=== PATIENT | female | born 1940 | race Caucasian/White ===

== ENCOUNTER → 2018-03-07 13:04 | Outpatient (CLI) | payer OTHER, SELFPAY ==
--- NOTE | 2018-03-07 | DI.MG.S_ITS ---
BILATERAL DIGITAL SCREENING MAMMOGRAM 3D/2D WITH CAD: 03/07/2018 CLINICAL: Routine screening. Comparison is made to exams dated: 07/19/2016 mammogram, 07/06/2014 mammogram - [facility], and 10/26/2010 mammogram - [facility]. The tissue of both breasts is heterogeneously dense. This may lower the sensitivity of mammography. Current study was also evaluated with a Computer Aided Detection (CAD) system. There are benign calcifications in both breasts. No significant masses, calcifications, or other findings are seen in either breast. IMPRESSION: BENIGN There is no mammographic evidence of malignancy. A 1 year screening mammogram is recommended. NOTE: For mammograms, a report in lay terms will be sent to the patient. Approximately 15% of breast malignancies will not be visualized mammographically. In the management of a palpable breast mass, a negative mammogram must not discourage biopsy of a clinically suspicious lesion. Electronically Signed By: Carlos de los santos/magdalena:03/09/2018 22:51:00 letter sent: Normal Exam ACR BI-RADS Category 2: Benign Finding(s) [id number]
== END ==
PROVIDERS: Family Provider Internal Medicine; PCP Internal Medicine; Visit Provider Internal Medicine
DX: Z12.31 Encounter for screening mammogram for malignant neoplasm of breast (principal)
CPT/HCPCS: 77063; 77067

== ENCOUNTER 2018-05-09 10:15 | Outpatient (RCR) | payer OTHER, SELFPAY ==
--- NOTE | 2018-02-23 16:06 | PT.OIE ---
Current Diagnoses Low back pain (02/19/18) Difficulty in walking, not elsewhere classified (02/19/18) Abnormal posture (02/19/18) Weakness (02/19/18) Provider Visit Care Team Role Provider Type Mehul Pérez MD Attending Provider Physician Family Provider Primary Care Provider Specialty: Internal Medicine Address: [address] [place] [address], [id number] Email: Physical Therapy Initial Evaluation PT-OP-B Current Condition Start: 02/19/18 09:50 Freq: Status: Active Protocol: Document 02/19/18 09:51 [facility] (Rec: 02/19/18 10:33 [facility] [id number]) Current Condition History of Current Condition Onset Date 2 years Current Complaints LBP, muscle spasms, right hip pain, bilateral knee pain right > left, weakn History of Current Condition diagnosed of a-fib 2 years ago , then edema and cellulitis and increase in neuropathy right foot. At this time c/o back spasms, constant sciatic nerve pain, right hip pain ( injection 2-4 months ago). Increasingly stooped over due to muscle spasms in back. Uses 4WW at home, trekking poles in the community. Pain increases with sitting ( especially in car), standing, walking. Reports 20# weight gain since being put on Prednisone. States she knows losing weight would be helpful for her pain. Prior Treatments and Tests Prior laminectomy 2011, not successful. Has had injections, not successful. MRI 18 months ago; further deterioration of lumbar spine Treatment Goals Patient/Caregiver Goals Learn land-based exercises, do aquatic therapy both to decrease pain, improve strength and mobility, activity tolerance. 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 Functional Limitations- Recreation/ limited to sitting Hobbies Personal Factors Other Personal Factors That May Effect chronicity of condition Therapy/Recovery PT-OP-C Subjective Start: 02/19/18 09:50 Freq: Status: Active Protocol: Document 02/23/18 15:35 [facility]AK (Rec: 02/23/18 16:04 [facility] [id number]) Patient Questionnaires Lower Extremity Functional Scale LEFS Score 41 LEFS Impairment 40 to 59% Impaired (Score 32- 47) Oswestry Low Back Index Oswestry Score 42 Oswestry Impairment 40 to 59% Impaired (Score 40- 59) OP-PT Pain Assessment Pain Assessment Grid Paper Pain Assessment Grid Completed Yes Location Bilateral Back Pain Location Details stas thoracic and lumbar spines 6/10, right hip, knee, and ankle 4/10, Pain Aggravating Factors Standing Walking Home Pain Medication Use Pain Medications Used Yes: Gabapentin, Acetaminophen /codeine PT-OP-G Mobility & Gait Start: 02/19/18 09:50 Freq: Status: Active Protocol: Document 02/23/18 15:35 [facility] (Rec: 02/23/18 16:04 [facility] [id number]) OP Mobility Evaluation Transfers Sit to Stand requires use of UE's, painful Bed to Chair Transfers painful Car Transfers difficult and painful Floor Transfers unable Functional Movements Lifting and Carrying painful Squats unable, painful Running Assessment painful OP Gait Assessment Gait Gait Assistance Required: Independent Gait Deviations General Gait Pattern Antalgic Decreased Stride Length Decreased Feet Clearance Flexed Trunk Comments Gait Comments using Data Maiding pole today, uses 4WW at home Stair Climbing Evaluation Technique/Endurance Stair Climbing Technique Step to Step Comments Stair Climbing Comments requires stas UE use PT-OP-K Range of Motion Start: 02/19/18 09:50 Freq: Status: Active Protocol: Document 02/23/18 15:35 [facility] (Rec: 02/23/18 16:04 [facility] [id number]) Lumbar Spine Range of Motion Lumbar Spine Active Comments forward flexion WNL otherwise moderately decreased with less than neutral extension Hip Goniometric Range of Motion Hip ROM Limitations Comments Sats hips moderately decreased with less than neutral hip extension, grossly -10. IR limited to 10 right, 20 left. Knee Goniometric Range of Motion Knee ROM Limitations Comments Lacking full extension stas knees right greater than left PT-OP-M Strength Start: 02/19/18 09:50 Freq: Status: Active Protocol: Document 02/23/18 15:35 [facility] (Rec: 02/23/18 16:04 [facility] [id number]) Trunk Strength Trunk Manual Muscle Testing Flexion 3- Fair- Extension 2 Poor Hip Strength Hip Manual Muscle Testing Left Flexion (L2) 4 Good Extension (S1) 3- Fair- Abduction 3+ Fair+ External Rotation 4- Good- Internal Rotation 4- Good- Right Flexion (L2) 4- Good- Extension (S1) 2+ Poor+ Abduction 3- Fair- External Rotation 3+ Fair+ Internal Rotation 4 Good Knee Strength Knee Manual Muscle Testing Left Flexion (S2) 4 Good Extension (L3) 4 Good Right Flexion (S2) 4- Good- Extension (L3) 4- Good- Comments painful Ankle/Foot Strength Ankle and Foot Manual Muscle Testing Left Dorsiflexion (L4) 4+ Good+ Plantarflexion (S1) 4+ Good+ Right Dorsiflexion (L4) 4+ Good+ Plantarflexion (S1) 4+ Good+ PT-OP-Q Treatments Start: 02/19/18 09:50 Freq: Status: Active Protocol: Document 02/23/18 15:35 [facility] (Rec: 02/23/18 16:04 [facility] [id number]) Self-Care/Home Management Treatment Education Patient Education Home Exercise Program Posture Other Education issued written program PT-OP-R Modalities Start: 02/19/18 09:50 Freq: Status: Active Protocol: Document 02/23/18 15:35 [facility] (Rec: 02/23/18 16:04 [facility] [id number]) Hot Pack/Cold Pack Treatment Hot Pack Location thoracolumbar spines Patient Position Hooklying Treatment Duration (minutes) 15 Patient Tolerance Good PT-OP-T Assessment and Plan Start: 02/19/18 09:50 Freq: Status: Active Protocol: Document 02/23/18 15:35 [facility] (Rec: 02/23/18 16:04 [facility] [id number]) Physical Therapy Assessment Rehab Potential Rehabilitation Potential Fair Evaluation Complexity Number of Personal Factors/Comorbidities 3 or More Number of Body Systems Impaired 4 or More Clinical Presentation at Evaluation Evolving Impairments Impairments Activity Tolerance Functional Mobility Gait Pain Posture ROM Strength Goals Three Impairment Strength Short Term Goal (STG) Patient will be instructed in a HEP and aquatic exercise program for strengthening, ROM , and postural correction STG Duration 6 wks Bleach Liquor Maker Goal (LTG) Patient will be independent with HEP and aquatic exercise program and demonstrate an improvement in strength of trunk and LE's to at least 4/5 LTG Duration 12 wks Two Impairment Functional mobility Short Term Goal (STG) Patient will be able to perform household ambulation with min to no increase in pain STG Duration 6 wks Prison Goal (LTG) Patient will be able to ambulate for short community distances with minimal to no increase in pain using least- restrictive assistive device LTG Duration 12 wks One Impairment Activity tolerance Short Term Goal (STG) Improve Oswestry disability score by 10 points STG Duration 6 wks Bleach Liquor Maker Goal (LTG) Improve Oswestry disability score to no greater than 25% LTG Duration 12 wks Assessment Summary Assessment Patient presents with function -limiting pain stas thoracic and lumbar spines with radicular symptoms into right LE, and 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 Comorbidities include obesity, peripheral neuropathy , a-fib, HTN, OA, prior lumbar surgery. Her forward flexed standing and walking posture and poor standing tolerance is typical of stenosis in spine. She would benefit from physical therapy in both land and aquatic environment for pain management, strengthening , ROM, posture and to educate her in HEP and aquatic exercise program for long-term fitness and pain management. Physical Therapy Plan Frequency and Duration Frequency of Treatment 2x/Week Duration of Treatment 12 wks Plan of Care Start Date 02/19/18 Plan of Care End Date 05/22/18 Therapeutic Interventions Therapeutic Interventions Aquatic Therapy Gait Training Home Exercise Program Manual Therapy Patient/Caregiver Education Self-Care/Home Management Therapeutic Activities Therapeutic Exercises Modalities Cold Pack/Ice Massage Electric Stimulation Hot Packs Ultrasound Next Visit Focus/Plan Next Note Type Treatment Note Next Visit Plan Therapeutic exercise to address goal areas, manual therapy and modalities as indicated.
--- NOTE | 2018-03-06 11:14 | PT.OTN ---
Current Diagnoses Low back pain (03/05/18) Physical Therapy Treatment Note PT-OP-A Visit Information Start: 02/19/18 09:50 Freq: Status: Active Protocol: Document 03/05/18 12:30 [facility] (Rec: 03/06/18 11:14 [facility] [id number]) Out-Patient Physical Therapy Visit Information Visit Information Visit Type Treatment Note Visit Start Time 12:30 Visit Stop Time 13:15 Total Visit Minutes 45 Visit Number 2 Number of SEXUAL ASSAULT RESPONSE COORDINATOR Visits 0 PT-OP-B Current Condition Start: 02/19/18 09:50 Freq: Status: Active Protocol: Document 02/19/18 09:51 [facility]AK (Rec: 02/19/18 10:33 [facility] [id number]) Current Condition History of Current Condition Onset Date 2 years Current Complaints LBP, muscle spasms, right hip pain, bilateral knee pain right > left, weakn History of Current Condition diagnosed of a-fib 2 years ago , then edema and cellulitis and increase in neuropathy right foot. At this time c/o back spasms, constant sciatic nerve pain, right hip pain ( injection 2-4 months ago). Increasingly stooped over due to muscle spasms in back. Uses 4WW at home, trekking poles in the community. Pain increases with sitting ( especially in car), standing, walking. Reports 20# weight gain since being put on Prednisone. States she knows losing weight would be helpful for her pain. Prior Treatments and Tests Prior laminectomy 2011, not successful. Has had injections, not successful. MRI 18 months ago; further deterioration of lumbar spine Treatment Goals Patient/Caregiver Goals Learn land-based exercises, do aquatic therapy both to decrease pain, improve strength and mobility, activity tolerance. 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 PT-OP-G Mobility & Gait Start: 02/19/18 09:50 Freq: Status: Active Protocol: Document 02/19/18 09:51 [facility] (Rec: 02/23/18 16:04 [facility] [id number]) OP Mobility Evaluation Transfers Sit to Stand requires use of UE's, painful Bed to Chair Transfers painful Car Transfers difficult and painful Floor Transfers unable Functional Movements Lifting and Carrying painful Squats unable, painful Running Assessment painful OP Gait Assessment Gait Gait Assistance Required: Independent Gait Deviations General Gait Pattern Antalgic Decreased Stride Length Decreased Feet Clearance Flexed Trunk Comments Gait Comments using [employer] pole today, uses 4WW at home Stair Climbing Evaluation Technique/Endurance Stair Climbing Technique Step to Step Comments Stair Climbing Comments requires stas UE use PT-OP-K Range of Motion Start: 02/19/18 09:50 Freq: Status: Active Protocol: Document 02/19/18 09:51 [facility] (Rec: 02/23/18 16:04 [facility] [id number]) Lumbar Spine Range of Motion Lumbar Spine Active Comments forward flexion WNL otherwise moderately decreased with less than neutral extension Hip Goniometric Range of Motion Hip ROM Limitations Comments Stas hips moderately decreased with less than neutral hip extension, grossly -10. IR limited to 10 right, 20 left. Knee Goniometric Range of Motion Knee ROM Limitations Comments Lacking full extension stas knees right greater than left PT-OP-M Strength Start: 02/19/18 09:50 Freq: Status: Active Protocol: Document 02/19/18 09:51 [facility] (Rec: 02/23/18 16:04 [facility] [id number]) Trunk Strength Trunk Manual Muscle Testing Flexion 3- Fair- Extension 2 Poor Hip Strength Hip Manual Muscle Testing Left Flexion (L2) 4 Good Extension (S1) 3- Fair- Abduction 3+ Fair+ External Rotation 4- Good- Internal Rotation 4- Good- Right Flexion (L2) 4- Good- Extension (S1) 2+ Poor+ Abduction 3- Fair- External Rotation 3+ Fair+ Internal Rotation 4 Good Knee Strength Knee Manual Muscle Testing Left Flexion (S2) 4 Good Extension (L3) 4 Good Right Flexion (S2) 4- Good- Extension (L3) 4- Good- Comments painful Ankle/Foot Strength Ankle and Foot Manual Muscle Testing Left Dorsiflexion (L4) 4+ Good+ Plantarflexion (S1) 4+ Good+ Right Dorsiflexion (L4) 4+ Good+ Plantarflexion (S1) 4+ Good+ PT-OP-Q Treatments Start: 02/19/18 09:50 Freq: Status: Active Protocol: Document 02/19/18 09:51 [facility] (Rec: 02/23/18 16:04 [facility] [id number]) Self-Care/Home Management Treatment Education Patient Education Home Exercise Program Posture Other Education issued written program PT-OP-R Modalities Start: 02/19/18 09:50 Freq: Status: Active Protocol: Document 02/19/18 09:51 [facility] (Rec: 02/23/18 16:04 [facility] [id number]) Hot Pack/Cold Pack Treatment Hot Pack Location thoracolumbar spines Patient Position Hooklying Treatment Duration (minutes) 15 Patient Tolerance Good PT-OP-S Aquatic Treatment Start: 02/19/18 09:50 Freq: Status: Active Protocol: Document 03/05/18 12:30 [facility] (Rec: 03/06/18 11:14 [facility] [id number]) Aquatics Treatment Pool Entry/Exit Pool Entry/Exit Method Stairs Assistance Contact Guard Assistance Comments may use lift next session to exit Water Walking Other- 1 Water Level Chest Level Walking Equipment none Level of Assistance Standby Assistance Verbal Cues Comments forward, backward, side, march Lower Extremity Exercises 4 Details step-ups Body Position Standing Water Level Chest Level Equipment 6 box Reps/Duration 10x 3 Details hip flex/ext, ab/ad, circles Body Position Standing Water Level Chest Level Comments postural and core stabilization emphasis 2 Details hamstring stretch Body Position Standing Water Level Chest Level Equipment Small Noodle 1 Details SKTC, DKTC Body Position Standing Water Level [place] Comments wall [place] Activities [place] Activities Bicycle [place] Hip Abduction/Adduction Equipment flotation belt PT-OP-T Assessment and Plan Start: 02/19/18 09:50 Freq: Status: Active Protocol: Document 03/05/18 12:30 [facility] (Rec: 03/06/18 11:14 [facility] [id number]) Physical Therapy Assessment Goals Three Impairment Strength Short Term Goal (STG) Patient will be instructed in a HEP and aquatic exercise program for strengthening, ROM , and postural correction STG Duration 6 wks Usp Goal (LTG) Patient will be independent with HEP and aquatic exercise program and demonstrate an improvement in strength of trunk and LE's to at least 4/5 LTG Duration 12 wks Two Impairment Functional mobility Short Term Goal (STG) Patient will be able to perform household ambulation with min to no increase in pain STG Duration 6 wks Usp Goal (LTG) Patient will be able to ambulate for short community distances with minimal to no increase in pain using least- restrictive assistive device LTG Duration 12 wks One Impairment Activity tolerance Short Term Goal (STG) Improve Oswestry disability score by 10 points STG Duration 6 wks Usp Goal (LTG) Improve Oswestry disability score to no greater than 25% LTG Duration 12 wks Assessment Summary Assessment Good tolerance for aquatic exercise, patient has poor body awareness in terms of postural alignment due to time spent in flexed position. Difficulty ascending stairs after treatment; may benefit from use of lift until strength improves. Physical Therapy Plan Frequency and Duration Frequency of Treatment 2x/Week Duration of Treatment 12 wks Plan of Care Start Date 02/19/18 Plan of Care End Date 05/22/18 Therapeutic Interventions Therapeutic Interventions Aquatic Therapy Gait Training Home Exercise Program Manual Therapy Patient/Caregiver Education Self-Care/Home Management Therapeutic Activities Therapeutic Exercises Modalities Cold Pack/Ice Massage Electric Stimulation Hot Packs Ultrasound Next Visit Focus/Plan Next Note Type Treatment Note Next Visit Plan Progression of aquatic therapy for strengthening, gait, core stabilization, flexibility.
--- NOTE | 2018-03-10 14:42 | PT.OTN ---
Current Diagnoses Low back pain (03/10/18) Physical Therapy Treatment Note PT-OP-A Visit Information Start: 02/19/18 09:50 Freq: Status: Active Protocol: Document 03/10/18 14:34 CLB (Rec: 03/10/18 14:42 CLB [email or web address]) Out-Patient Physical Therapy Visit Information Visit Information Visit Start Time 10:15 Visit Stop Time 11:00 Total Visit Minutes 45 Visit Number 3 Number of HEALTHCARE TECHNICIAN Visits 1 PT-OP-B Current Condition Start: 02/19/18 09:50 Freq: Status: Active Protocol: Document 02/19/18 09:51 SAK (Rec: 02/19/18 10:33 SAK [id number]) Current Condition History of Current Condition Onset Date 2 years Current Complaints LBP, muscle spasms, right hip pain, bilateral knee pain right > left, weakn History of Current Condition diagnosed of a-fib 2 years ago , then edema and cellulitis and increase in neuropathy right foot. At this time c/o back spasms, constant sciatic nerve pain, right hip pain ( injection 2-4 months ago). Increasingly stooped over due to muscle spasms in back. Uses 4WW at home, trekking poles in the community. Pain increases with sitting ( especially in car), standing, walking. Reports 20# weight gain since being put on Prednisone. States she knows losing weight would be helpful for her pain. Prior Treatments and Tests Prior laminectomy 2011, not successful. Has had injections, not successful. MRI 18 months ago; further deterioration of lumbar spine Treatment Goals Patient/Caregiver Goals Learn land-based exercises, do aquatic therapy both to decrease pain, improve strength and mobility, activity tolerance. 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 Pt stated her doctor has diagnosed tendinitis of medial right knee. Pt stated she has pain in adductors of right LE after sitting in chair. PT-OP-G Mobility & Gait Start: 02/19/18 09:50 Freq: Status: Active Protocol: Document 02/19/18 09:51 SAK (Rec: 02/23/18 16:04 [facility] [id number]) OP Mobility Evaluation Transfers Sit to Stand requires use of UE's, painful Bed to Chair Transfers painful Car Transfers difficult and painful Floor Transfers unable Functional Movements Lifting and Carrying painful Squats unable, painful Running Assessment painful OP Gait Assessment Gait Gait Assistance Required: Independent Gait Deviations General Gait Pattern Antalgic Decreased Stride Length Decreased Feet Clearance Flexed Trunk Comments Gait Comments using MobGolding pole today, uses 4WW at home Stair Climbing Evaluation Technique/Endurance Stair Climbing Technique Step to Step Comments Stair Climbing Comments requires stas UE use PT-OP-K Range of Motion Start: 02/19/18 09:50 Freq: Status: Active Protocol: Document 02/19/18 09:51 SAK (Rec: 02/23/18 16:04 [facility] [id number]) Lumbar Spine Range of Motion Lumbar Spine Active Comments forward flexion WNL otherwise moderately decreased with less than neutral extension Hip Goniometric Range of Motion Hip ROM Limitations Comments Stas hips moderately decreased with less than neutral hip extension, grossly -10. IR limited to 10 right, 20 left. Knee Goniometric Range of Motion Knee ROM Limitations Comments Lacking full extension stas knees right greater than left PT-OP-M Strength Start: 02/19/18 09:50 Freq: Status: Active Protocol: Document 02/19/18 09:51 SAK (Rec: 02/23/18 16:04 SAK [id number]) Trunk Strength Trunk Manual Muscle Testing Flexion 3- Fair- Extension 2 Poor Hip Strength Hip Manual Muscle Testing Left Flexion (L2) 4 Good Extension (S1) 3- Fair- Abduction 3+ Fair+ External Rotation 4- Good- Internal Rotation 4- Good- Right Flexion (L2) 4- Good- Extension (S1) 2+ Poor+ Abduction 3- Fair- External Rotation 3+ Fair+ Internal Rotation 4 Good Knee Strength Knee Manual Muscle Testing Left Flexion (S2) 4 Good Extension (L3) 4 Good Right Flexion (S2) 4- Good- Extension (L3) 4- Good- Comments painful Ankle/Foot Strength Ankle and Foot Manual Muscle Testing Left Dorsiflexion (L4) 4+ Good+ Plantarflexion (S1) 4+ Good+ Right Dorsiflexion (L4) 4+ Good+ Plantarflexion (S1) 4+ Good+ PT-OP-Q Treatments Start: 02/19/18 09:50 Freq: Status: Active Protocol: Document 02/19/18 09:51 SAK (Rec: 02/23/18 16:04 SAK [id number]) Self-Care/Home Management Treatment Education Patient Education Home Exercise Program Posture Other Education issued written program PT-OP-R Modalities Start: 02/19/18 09:50 Freq: Status: Active Protocol: Document 02/19/18 09:51 SAK (Rec: 02/23/18 16:04 SAK [id number]) Hot Pack/Cold Pack Treatment Hot Pack Location thoracolumbar spines Patient Position Hooklying Treatment Duration (minutes) 15 Patient Tolerance Good PT-OP-S Aquatic Treatment Start: 02/19/18 09:50 Freq: Status: Active Protocol: Document 03/10/18 14:34 CLB (Rec: 03/10/18 14:42 CLB [email or web address]) Aquatics Treatment Pool Entry/Exit Pool Entry/Exit Method Stairs Assistance Contact Guard Assistance Comments Pt respectfully refused using lift. Lower Extremity Exercises 4 Details step-ups Body Position Standing Equipment bottom stair Reps/Duration 10x 3 Details hip flex/ext, ab/ad, circles Body Position Standing Water Level Chest Level Comments postural and core stabilization emphasis 2 Details hamstring stretch Body Position Standing Water Level Chest Level Equipment Small Noodle 1 Details SKTC, DKTC Body Position Standing Water Level [place] Comments wall [place] Activities [place] Activities Bicycle [place] Hip Abduction/Adduction Equipment flotation belt PT-OP-T Assessment and Plan Start: 02/19/18 09:50 Freq: Status: Active Protocol: Document 03/10/18 14:34 CLB (Rec: 03/10/18 14:42 CLB [email or web address]) Physical Therapy Assessment Goals Three Impairment Strength Short Term Goal (STG) Patient will be instructed in a HEP and aquatic exercise program for strengthening, ROM , and postural correction STG Duration 6 wks Mcc Goal (LTG) Patient will be independent with HEP and aquatic exercise program and demonstrate an improvement in strength of trunk and LE's to at least 4/5 LTG Duration 12 wks Two Impairment Functional mobility Short Term Goal (STG) Patient will be able to perform household ambulation with min to no increase in pain STG Duration 6 wks [employer] Goal (LTG) Patient will be able to ambulate for short community distances with minimal to no increase in pain using least- restrictive assistive device LTG Duration 12 wks One Impairment Activity tolerance Short Term Goal (STG) Improve Oswestry disability score by 10 points STG Duration 6 wks [employer] Goal (LTG) Improve Oswestry disability score to no greater than 25% LTG Duration 12 wks Assessment Summary Assessment Pt continues with good tolerance with aquatic exercises. Pt needs cues for postural alignment and alignment of RLE during deep water, stretching and ther ex. Physical Therapy Plan Frequency and Duration Frequency of Treatment 2x/Week Duration of Treatment 12 wks Plan of Care Start Date 02/19/18 Plan of Care End Date 05/22/18 Next Visit Focus/Plan Next Note Type Treatment Note Next Visit Plan Progression of aquatic therapy for strengthening, gait, core stabilization, flexibility.
--- NOTE | 2018-03-14 14:45 | PT.OTN ---
Current Diagnoses Low back pain (03/14/18) Physical Therapy Treatment Note PT-OP-A Visit Information Start: 02/19/18 09:50 Freq: Status: Active Protocol: Document 03/14/18 10:15 [facility] (Rec: 03/14/18 14:45 LJ [id number]) Out-Patient Physical Therapy Visit Information Visit Information Visit Start Time 10:15 Visit Stop Time 11:00 Total Visit Minutes 45 Visit Number 3 Number of SPORTS COORDINATOR Visits 2 PT-OP-B Current Condition Start: 02/19/18 09:50 Freq: Status: Active Protocol: Document 02/19/18 09:51 SAK (Rec: 02/19/18 10:33 SAK [id number]) Current Condition History of Current Condition Onset Date 2 years Current Complaints LBP, muscle spasms, right hip pain, bilateral knee pain right > left, weakn History of Current Condition diagnosed of a-fib 2 years ago , then edema and cellulitis and increase in neuropathy right foot. At this time c/o back spasms, constant sciatic nerve pain, right hip pain ( injection 2-4 months ago). Increasingly stooped over due to muscle spasms in back. Uses 4WW at home, trekking poles in the community. Pain increases with sitting ( especially in car), standing, walking. Reports 20# weight gain since being put on Prednisone. States she knows losing weight would be helpful for her pain. Prior Treatments and Tests Prior laminectomy 2011, not successful. Has had injections, not successful. MRI 18 months ago; further deterioration of lumbar spine Treatment Goals Patient/Caregiver Goals Learn land-based exercises, do aquatic therapy both to decrease pain, improve strength and mobility, activity tolerance. 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 Pt reports that getting to the pool every day is too much for her. PT-OP-G Mobility & Gait Start: 02/19/18 09:50 Freq: Status: Active Protocol: Document 02/19/18 09:51 [facility] (Rec: 02/23/18 16:04 [facility] [id number]) OP Mobility Evaluation Transfers Sit to Stand requires use of UE's, painful Bed to Chair Transfers painful Car Transfers difficult and painful Floor Transfers unable Functional Movements Lifting and Carrying painful Squats unable, painful Running Assessment painful OP Gait Assessment Gait Gait Assistance Required: Independent Gait Deviations General Gait Pattern Antalgic Decreased Stride Length Decreased Feet Clearance Flexed Trunk Comments Gait Comments using [employer] pole today, uses 4WW at home Stair Climbing Evaluation Technique/Endurance Stair Climbing Technique Step to Step Comments Stair Climbing Comments requires stas UE use PT-OP-K Range of Motion Start: 02/19/18 09:50 Freq: Status: Active Protocol: Document 02/19/18 09:51 [facility] (Rec: 02/23/18 16:04 [facility] [id number]) Lumbar Spine Range of Motion Lumbar Spine Active Comments forward flexion WNL otherwise moderately decreased with less than neutral extension Hip Goniometric Range of Motion Hip ROM Limitations Comments Stas hips moderately decreased with less than neutral hip extension, grossly -10. IR limited to 10 right, 20 left. Knee Goniometric Range of Motion Knee ROM Limitations Comments Lacking full extension stas knees right greater than left PT-OP-M Strength Start: 02/19/18 09:50 Freq: Status: Active Protocol: Document 02/19/18 09:51 [facility] (Rec: 02/23/18 16:04 [facility] [id number]) Trunk Strength Trunk Manual Muscle Testing Flexion 3- Fair- Extension 2 Poor Hip Strength Hip Manual Muscle Testing Left Flexion (L2) 4 Good Extension (S1) 3- Fair- Abduction 3+ Fair+ External Rotation 4- Good- Internal Rotation 4- Good- Right Flexion (L2) 4- Good- Extension (S1) 2+ Poor+ Abduction 3- Fair- External Rotation 3+ Fair+ Internal Rotation 4 Good Knee Strength Knee Manual Muscle Testing Left Flexion (S2) 4 Good Extension (L3) 4 Good Right Flexion (S2) 4- Good- Extension (L3) 4- Good- Comments painful Ankle/Foot Strength Ankle and Foot Manual Muscle Testing Left Dorsiflexion (L4) 4+ Good+ Plantarflexion (S1) 4+ Good+ Right Dorsiflexion (L4) 4+ Good+ Plantarflexion (S1) 4+ Good+ PT-OP-Q Treatments Start: 02/19/18 09:50 Freq: Status: Active Protocol: Document 02/19/18 09:51 SAK (Rec: 02/23/18 16:04 SAK [id number]) Self-Care/Home Management Treatment Education Patient Education Home Exercise Program Posture Other Education issued written program PT-OP-R Modalities Start: 02/19/18 09:50 Freq: Status: Active Protocol: Document 02/19/18 09:51 SAK (Rec: 02/23/18 16:04 SAK [id number]) Hot Pack/Cold Pack Treatment Hot Pack Location thoracolumbar spines Patient Position Hooklying Treatment Duration (minutes) 15 Patient Tolerance Good PT-OP-S Aquatic Treatment Start: 02/19/18 09:50 Freq: Status: Active Protocol: Document 03/14/18 10:15 [facility] (Rec: 03/14/18 14:45 [facility] [email or web address]) Aquatics Treatment Pool Entry/Exit Pool Entry/Exit Method Stairs Assistance Standby Assistance Water Walking Other- 1 Water Level Chest Level Walking Equipment none Level of Assistance Standby Assistance Verbal Cues Comments forward, backward, side, march Lower Extremity Exercises 6 Details TKE bilat in squat position against wall Body Position Sitting Water Level Chest Level Equipment Resistance Fins Reps/Duration 10 5 Details horiz ab/ad w/pink noodle under ankle; LE slightly submerged Body Position Standing Water Level Waist Level Equipment Small Noodle Reps/Duration 10 bilat 3 Details hip flex/ext, ab/ad, circles Body Position Standing Water Level Chest Level Comments postural and core stabilization emphasis 2 Details hamstring stretch Body Position Standing Water Level Chest Level Equipment Small Noodle Lower Extremity Stretches 1 Details HS w/sm noodle Body Position Standing Water Level Waist Level Equipment Small Noodle [place] Activities [place] Activities Bicycle [place] Hip Abduction/Adduction Equipment flotation belt PT-OP-T Assessment and Plan Start: 02/19/18 09:50 Freq: Status: Active Protocol: Document 03/14/18 10:15 LJ (Rec: 03/14/18 14:45 [facility] [id number]) Physical Therapy Assessment Rehab Potential Rehabilitation Potential Fair Impairments Impairments Activity Tolerance Functional Mobility Gait Pain Posture ROM Strength Goals Three Impairment Strength Short Term Goal (STG) Patient will be instructed in a HEP and aquatic exercise program for strengthening, ROM , and postural correction STG Duration 6 wks Slitter Operator Goal (LTG) Patient will be independent with HEP and aquatic exercise program and demonstrate an improvement in strength of trunk and LE's to at least 4/5 LTG Duration 12 wks Two Impairment Functional mobility Short Term Goal (STG) Patient will be able to perform household ambulation with min to no increase in pain STG Duration 6 wks [facility] Goal (LTG) Patient will be able to ambulate for short community distances with minimal to no increase in pain using least- restrictive assistive device LTG Duration 12 wks One Impairment Activity tolerance Short Term Goal (STG) Improve Oswestry disability score by 10 points STG Duration 6 wks [facility] Goal (LTG) Improve Oswestry disability score to no greater than 25% LTG Duration 12 wks Assessment Summary Assessment Pt tolerates pool therapy well . Requires cues for postural alignment and core stabilization as well as RLE toe-knee alignment Physical Therapy Plan Next Visit Focus/Plan Next Note Type Treatment Note Next Visit Plan Progression of aquatic therapy for strengthening, gait, core stabilization, flexibility.
--- NOTE | 2018-03-17 14:33 | PT.OTN ---
Current Diagnoses Low back pain (03/17/18) Physical Therapy Treatment Note PT-OP-A Visit Information Start: 02/19/18 09:50 Freq: Status: Active Protocol: Document 03/17/18 11:00 CLB (Rec: 03/17/18 14:33 CLB [id number]) Out-Patient Physical Therapy Visit Information Visit Information Visit Start Time 11:00 Visit Stop Time 11:45 Total Visit Minutes 45 Visit Number 3 Number of RETAIL TRAINING MANAGER Visits 3 PT-OP-B Current Condition Start: 02/19/18 09:50 Freq: Status: Active Protocol: Document 02/19/18 09:51 SAK (Rec: 02/19/18 10:33 SAK [id number]) Current Condition History of Current Condition Onset Date 2 years Current Complaints LBP, muscle spasms, right hip pain, bilateral knee pain right > left, weakn History of Current Condition diagnosed of a-fib 2 years ago , then edema and cellulitis and increase in neuropathy right foot. At this time c/o back spasms, constant sciatic nerve pain, right hip pain ( injection 2-4 months ago). Increasingly stooped over due to muscle spasms in back. Uses 4WW at home, trekking poles in the community. Pain increases with sitting ( especially in car), standing, walking. Reports 20# weight gain since being put on Prednisone. States she knows losing weight would be helpful for her pain. Prior Treatments and Tests Prior laminectomy 2011, not successful. Has had injections, not successful. MRI 18 months ago; further deterioration of lumbar spine Treatment Goals Patient/Caregiver Goals Learn land-based exercises, do aquatic therapy both to decrease pain, improve strength and mobility, activity tolerance. 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 PT-OP-G Mobility & Gait Start: 02/19/18 09:50 Freq: Status: Active Protocol: Document 02/19/18 09:51 [facility] (Rec: 02/23/18 16:04 [facility] [id number]) OP Mobility Evaluation Transfers Sit to Stand requires use of UE's, painful Bed to Chair Transfers painful Car Transfers difficult and painful Floor Transfers unable Functional Movements Lifting and Carrying painful Squats unable, painful Running Assessment painful OP Gait Assessment Gait Gait Assistance Required: Independent Gait Deviations General Gait Pattern Antalgic Decreased Stride Length Decreased Feet Clearance Flexed Trunk Comments Gait Comments using StARTinitiativekking pole today, uses 4WW at home Stair Climbing Evaluation Technique/Endurance Stair Climbing Technique Step to Step Comments Stair Climbing Comments requires stas UE use PT-OP-K Range of Motion Start: 02/19/18 09:50 Freq: Status: Active Protocol: Document 02/19/18 09:51 [facility] (Rec: 02/23/18 16:04 [facility] [id number]) Lumbar Spine Range of Motion Lumbar Spine Active Comments forward flexion WNL otherwise moderately decreased with less than neutral extension Hip Goniometric Range of Motion Hip ROM Limitations Comments Stas hips moderately decreased with less than neutral hip extension, grossly -10. IR limited to 10 right, 20 left. Knee Goniometric Range of Motion Knee ROM Limitations Comments Lacking full extension stas knees right greater than left PT-OP-M Strength Start: 02/19/18 09:50 Freq: Status: Active Protocol: Document 02/19/18 09:51 [facility] (Rec: 02/23/18 16:04 [facility] [id number]) Trunk Strength Trunk Manual Muscle Testing Flexion 3- Fair- Extension 2 Poor Hip Strength Hip Manual Muscle Testing Left Flexion (L2) 4 Good Extension (S1) 3- Fair- Abduction 3+ Fair+ External Rotation 4- Good- Internal Rotation 4- Good- Right Flexion (L2) 4- Good- Extension (S1) 2+ Poor+ Abduction 3- Fair- External Rotation 3+ Fair+ Internal Rotation 4 Good Knee Strength Knee Manual Muscle Testing Left Flexion (S2) 4 Good Extension (L3) 4 Good Right Flexion (S2) 4- Good- Extension (L3) 4- Good- Comments painful Ankle/Foot Strength Ankle and Foot Manual Muscle Testing Left Dorsiflexion (L4) 4+ Good+ Plantarflexion (S1) 4+ Good+ Right Dorsiflexion (L4) 4+ Good+ Plantarflexion (S1) 4+ Good+ PT-OP-Q Treatments Start: 02/19/18 09:50 Freq: Status: Active Protocol: Document 02/19/18 09:51 SAK (Rec: 02/23/18 16:04 SAK [id number]) Self-Care/Home Management Treatment Education Patient Education Home Exercise Program Posture Other Education issued written program PT-OP-R Modalities Start: 02/19/18 09:50 Freq: Status: Active Protocol: Document 02/19/18 09:51 SAK (Rec: 02/23/18 16:04 SAK [id number]) Hot Pack/Cold Pack Treatment Hot Pack Location thoracolumbar spines Patient Position Hooklying Treatment Duration (minutes) 15 Patient Tolerance Good PT-OP-S Aquatic Treatment Start: 02/19/18 09:50 Freq: Status: Active Protocol: Document 03/17/18 11:00 CLB (Rec: 03/17/18 14:33 CLB [id number]) Aquatics Treatment Pool Entry/Exit Pool Entry/Exit Method Stairs Assistance Standby Assistance Lower Extremity Exercises 6 Details TKE bilat in squat position against wall Body Position Sitting Water Level Chest Level Equipment Resistance Fins Reps/Duration 10 5 Details horiz ab/ad w/pink noodle under ankle; LE slightly submerged Body Position Standing Water Level Waist Level Equipment Small Noodle Reps/Duration 10 bilat 3 Details hip flex/ext, ab/ad, circles Body Position Standing Water Level Chest Level Comments postural and core stabilization emphasis 2 Details hamstring stretch Body Position Standing Water Level Chest Level Equipment Small Noodle 1 Details SKTC, DKTC Body Position Standing Water Level [place] Comments wall Lower Extremity Stretches 1 Details HS w/sm noodle Body Position Standing Water Level Waist Level Equipment Small Noodle [place] Activities [place] Activities Bicycle Cross [place] Hip Abduction/Adduction Equipment flotation belt PT-OP-T Assessment and Plan Start: 02/19/18 09:50 Freq: Status: Active Protocol: Document 03/17/18 11:00 CLB (Rec: 03/17/18 14:33 CLB [id number]) Physical Therapy Assessment Goals Three Impairment Strength Short Term Goal (STG) Patient will be instructed in a HEP and aquatic exercise program for strengthening, ROM , and postural correction STG Duration 6 wks Fdc Goal (LTG) Patient will be independent with HEP and aquatic exercise program and demonstrate an improvement in strength of trunk and LE's to at least 4/5 LTG Duration 12 wks Two Impairment Functional mobility Short Term Goal (STG) Patient will be able to perform household ambulation with min to no increase in pain STG Duration 6 wks Fdc Goal (LTG) Patient will be able to ambulate for short community distances with minimal to no increase in pain using least- restrictive assistive device LTG Duration 12 wks One Impairment Activity tolerance Short Term Goal (STG) Improve Oswestry disability score by 10 points STG Duration 6 wks Fdc Goal (LTG) Improve Oswestry disability score to no greater than 25% LTG Duration 12 wks Assessment Summary Assessment Pt had difficulty due to injury to left knee. Pt continues to need cues for posture during treatment session. Physical Therapy Plan Frequency and Duration Frequency of Treatment 2x/Week Duration of Treatment 12 wks Plan of Care Start Date 02/19/18 Plan of Care End Date 05/22/18 Next Visit Focus/Plan Next Note Type Treatment Note Next Visit Plan Progression of aquatic therapy for strengthening, gait, core stabilization, flexibility.
--- NOTE | 2018-03-21 14:43 | PT.OTN ---
Current Diagnoses Low back pain (03/21/18) Physical Therapy Treatment Note PT-OP-A Visit Information Start: 02/19/18 09:50 Freq: Status: Active Protocol: Document 03/21/18 14:21 NAVNE[facility] (Rec: 03/21/18 14:42 LJ [id number]) Out-Patient Physical Therapy Visit Information Visit Information Visit Start Time 10:15 Visit Stop Time 11:00 Total Visit Minutes 45 PT-OP-B Current Condition Start: 02/19/18 09:50 Freq: Status: Active Protocol: Document 02/19/18 09:51 SAK (Rec: 02/19/18 10:33 SAK [id number]) Current Condition History of Current Condition Onset Date 2 years Current Complaints LBP, muscle spasms, right hip pain, bilateral knee pain right > left, weakn History of Current Condition diagnosed of a-fib 2 years ago , then edema and cellulitis and increase in neuropathy right foot. At this time c/o back spasms, constant sciatic nerve pain, right hip pain ( injection 2-4 months ago). Increasingly stooped over due to muscle spasms in back. Uses 4WW at home, trekking poles in the community. Pain increases with sitting ( especially in car), standing, walking. Reports 20# weight gain since being put on Prednisone. States she knows losing weight would be helpful for her pain. Prior Treatments and Tests Prior laminectomy 2011, not successful. Has had injections, not successful. MRI 18 months ago; further deterioration of lumbar spine Treatment Goals Patient/Caregiver Goals Learn land-based exercises, do aquatic therapy both to decrease pain, improve strength and mobility, activity tolerance. 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 Also wants to stretch her shoulders because her massage therapist told her it would be a good idea. PT-OP-G Mobility & Gait Start: 02/19/18 09:50 Freq: Status: Active Protocol: Document 02/19/18 09:51 [facility] (Rec: 02/23/18 16:04 [facility] [id number]) OP Mobility Evaluation Transfers Sit to Stand requires use of UE's, painful Bed to Chair Transfers painful Car Transfers difficult and painful Floor Transfers unable Functional Movements Lifting and Carrying painful Squats unable, painful Running Assessment painful OP Gait Assessment Gait Gait Assistance Required: Independent Gait Deviations General Gait Pattern Antalgic Decreased Stride Length Decreased Feet Clearance Flexed Trunk Comments Gait Comments using Idyliskking pole today, uses 4WW at home Stair Climbing Evaluation Technique/Endurance Stair Climbing Technique Step to Step Comments Stair Climbing Comments requires stas UE use PT-OP-K Range of Motion Start: 02/19/18 09:50 Freq: Status: Active Protocol: Document 02/19/18 09:51 [facility] (Rec: 02/23/18 16:04 [facility] [id number]) Lumbar Spine Range of Motion Lumbar Spine Active Comments forward flexion WNL otherwise moderately decreased with less than neutral extension Hip Goniometric Range of Motion Hip ROM Limitations Comments Stas hips moderately decreased with less than neutral hip extension, grossly -10. IR limited to 10 right, 20 left. Knee Goniometric Range of Motion Knee ROM Limitations Comments Lacking full extension stas knees right greater than left PT-OP-M Strength Start: 02/19/18 09:50 Freq: Status: Active Protocol: Document 02/19/18 09:51 [facility] (Rec: 02/23/18 16:04 [facility] [id number]) Trunk Strength Trunk Manual Muscle Testing Flexion 3- Fair- Extension 2 Poor Hip Strength Hip Manual Muscle Testing Left Flexion (L2) 4 Good Extension (S1) 3- Fair- Abduction 3+ Fair+ External Rotation 4- Good- Internal Rotation 4- Good- Right Flexion (L2) 4- Good- Extension (S1) 2+ Poor+ Abduction 3- Fair- External Rotation 3+ Fair+ Internal Rotation 4 Good Knee Strength Knee Manual Muscle Testing Left Flexion (S2) 4 Good Extension (L3) 4 Good Right Flexion (S2) 4- Good- Extension (L3) 4- Good- Comments painful Ankle/Foot Strength Ankle and Foot Manual Muscle Testing Left Dorsiflexion (L4) 4+ Good+ Plantarflexion (S1) 4+ Good+ Right Dorsiflexion (L4) 4+ Good+ Plantarflexion (S1) 4+ Good+ PT-OP-Q Treatments Start: 02/19/18 09:50 Freq: Status: Active Protocol: Document 02/19/18 09:51 SAK (Rec: 02/23/18 16:04 SAK [id number]) Self-Care/Home Management Treatment Education Patient Education Home Exercise Program Posture Other Education issued written program PT-OP-R Modalities Start: 02/19/18 09:50 Freq: Status: Active Protocol: Document 02/19/18 09:51 SAK (Rec: 02/23/18 16:04 SAK [id number]) Hot Pack/Cold Pack Treatment Hot Pack Location thoracolumbar spines Patient Position Hooklying Treatment Duration (minutes) 15 Patient Tolerance Good PT-OP-S Aquatic Treatment Start: 02/19/18 09:50 Freq: Status: Active Protocol: Document 03/21/18 14:21 [facility] (Rec: 03/21/18 14:42 [facility] [id number]) Aquatics Treatment Pool Entry/Exit Pool Entry/Exit Method Stairs Assistance Standby Assistance Water Walking Other- 1 Water Level Chest Level Level of Assistance Standby Assistance Comments forward, side, back directional change Lower Extremity Exercises 3 Details hip flex/ext, ab/ad, circles Body Position Standing Water Level Chest Level Comments postural and core stabilization emphasis 2 Details hamstring stretch Body Position Standing Water Level Chest Level Equipment Small Noodle Upper Extremity Stretches 1 Details shoulder stretch Body Position Standing Water Level Waist Level Equipment Bryant Float Reps/Duration arm drag holding smiley faces Spinal Exercises 1 Details wall squat with UE movement Body Position Sitting Reps/Duration x 10 each direction Comments UE fl/ex, wipers, ab/ad with bent arms [place] Activities [place] Activities Bicycle Cross [place] Hip Abduction/Adduction Other Activities gentle intervals 15/30 x 6 reps to introduce exercise and increase endurance. corner leg lifts x 5 for ab strengthening Equipment flotation belt PT-OP-T Assessment and Plan Start: 02/19/18 09:50 Freq: Status: Active Protocol: Document 03/21/18 14:21 [facility] (Rec: 03/21/18 14:42 [facility] [id number]) Physical Therapy Assessment Goals Three Impairment Strength Short Term Goal (STG) Patient will be instructed in a HEP and aquatic exercise program for strengthening, ROM , and postural correction STG Duration 6 wks Tank Processor Goal (LTG) Patient will be independent with HEP and aquatic exercise program and demonstrate an improvement in strength of trunk and LE's to at least 4/5 LTG Duration 12 wks Two Impairment Functional mobility Short Term Goal (STG) Patient will be able to perform household ambulation with min to no increase in pain STG Duration 6 wks Tank Processor Goal (LTG) Patient will be able to ambulate for short community distances with minimal to no increase in pain using least- restrictive assistive device LTG Duration 12 wks One Impairment Activity tolerance Short Term Goal (STG) Improve Oswestry disability score by 10 points STG Duration 6 wks Long-Term Goal (LTG) Improve Oswestry disability score to no greater than 25% LTG Duration 12 wks Assessment Summary Assessment Pt had difficulty coordinating deep water jacks. Reluctant to increase exercise intensity but responded well. Positive response to corner leg lifts. Physical Therapy Plan Frequency and Duration Frequency of Treatment 2x/Week Duration of Treatment 12 wks Plan of Care Start Date 02/19/18 Plan of Care End Date 05/22/18 Next Visit Focus/Plan Next Note Type Treatment Note Next Visit Plan Progression of aquatic therapy for strengthening, gait, core stabilization, flexibility.
--- NOTE | 2018-03-26 16:52 | PT.OTN ---
Current Diagnoses Low back pain (03/26/18) Physical Therapy Treatment Note PT-OP-A Visit Information Start: 02/19/18 09:50 Freq: Status: Active Protocol: Document 03/26/18 16:44 SAK (Rec: 03/26/18 16:52 SAK [id number]) Out-Patient Physical Therapy Visit Information Visit Information Visit Type Treatment Note Visit Start Time 11:00 Visit Stop Time 11:45 Total Visit Minutes 45 Visit Number 7 Number of AUTOMATIC BUFFING WHEEL FORMER Visits 0 Evaluation Information Evaluation Date 02/19/18 PT-OP-B Current Condition Start: 02/19/18 09:50 Freq: Status: Active Protocol: Document 02/19/18 09:51 SAK (Rec: 02/19/18 10:33 SAK [id number]) Current Condition History of Current Condition Onset Date 2 years Current Complaints LBP, muscle spasms, right hip pain, bilateral knee pain right > left, weakn History of Current Condition diagnosed of a-fib 2 years ago , then edema and cellulitis and increase in neuropathy right foot. At this time c/o back spasms, constant sciatic nerve pain, right hip pain ( injection 2-4 months ago). Increasingly stooped over due to muscle spasms in back. Uses 4WW at home, trekking poles in the community. Pain increases with sitting ( especially in car), standing, walking. Reports 20# weight gain since being put on Prednisone. States she knows losing weight would be helpful for her pain. Prior Treatments and Tests Prior laminectomy 2011, not successful. Has had injections, not successful. MRI 18 months ago; further deterioration of lumbar spine Treatment Goals Patient/Caregiver Goals Learn land-based exercises, do aquatic therapy both to decrease pain, improve strength and mobility, activity tolerance. 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 (Rec: 03/26/18 16:52 [facility] [id number]) OP-PT Subjective Patient Comments Patient Comments Patient reports after last session felt able to stand straighter for awhile. Feels aquatic therapy is helpful. Right knee still stiff but a little better. Patient Reported Progress Improving PT-OP-G Mobility & Gait Start: 02/19/18 09:50 Freq: Status: Active Protocol: Document 02/19/18 09:51 [facility] (Rec: 02/23/18 16:04 [facility] [id number]) OP Mobility Evaluation Transfers Sit to Stand requires use of UE's, painful Bed to Chair Transfers painful Car Transfers difficult and painful Floor Transfers unable Functional Movements Lifting and Carrying painful Squats unable, painful Running Assessment painful OP Gait Assessment Gait Gait Assistance Required: Independent Gait Deviations General Gait Pattern Antalgic Decreased Stride Length Decreased Feet Clearance Flexed Trunk Comments Gait Comments using [employer] pole today, uses 4WW at home Stair Climbing Evaluation Technique/Endurance Stair Climbing Technique Step to Step Comments Stair Climbing Comments requires stas UE use PT-OP-K Range of Motion Start: 02/19/18 09:50 Freq: Status: Active Protocol: Document 02/19/18 09:51 [facility] (Rec: 02/23/18 16:04 [facility] [id number]) Lumbar Spine Range of Motion Lumbar Spine Active Comments forward flexion WNL otherwise moderately decreased with less than neutral extension Hip Goniometric Range of Motion Hip ROM Limitations Comments Stas hips moderately decreased with less than neutral hip extension, grossly -10. IR limited to 10 right, 20 left. Knee Goniometric Range of Motion Knee ROM Limitations Comments Lacking full extension stas knees right greater than left PT-OP-M Strength Start: 02/19/18 09:50 Freq: Status: Active Protocol: Document 02/19/18 09:51 [facility] (Rec: 02/23/18 16:04 [facility] [id number]) Trunk Strength Trunk Manual Muscle Testing Flexion 3- Fair- Extension 2 Poor Hip Strength Hip Manual Muscle Testing Left Flexion (L2) 4 Good Extension (S1) 3- Fair- Abduction 3+ Fair+ External Rotation 4- Good- Internal Rotation 4- Good- Right Flexion (L2) 4- Good- Extension (S1) 2+ Poor+ Abduction 3- Fair- External Rotation 3+ Fair+ Internal Rotation 4 Good Knee Strength Knee Manual Muscle Testing Left Flexion (S2) 4 Good Extension (L3) 4 Good Right Flexion (S2) 4- Good- Extension (L3) 4- Good- Comments painful Ankle/Foot Strength Ankle and Foot Manual Muscle Testing Left Dorsiflexion (L4) 4+ Good+ Plantarflexion (S1) 4+ Good+ Right Dorsiflexion (L4) 4+ Good+ Plantarflexion (S1) 4+ Good+ PT-OP-Q Treatments Start: 02/19/18 09:50 Freq: Status: Active Protocol: Document 02/19/18 09:51 [facility] (Rec: 02/23/18 16:04 [facility] [id number]) Self-Care/Home Management Treatment Education Patient Education Home Exercise Program Posture Other Education issued written program PT-OP-R Modalities Start: 02/19/18 09:50 Freq: Status: Active Protocol: Document 02/19/18 09:51 SAK (Rec: 02/23/18 16:04 [facility] [id number]) Hot Pack/Cold Pack Treatment Hot Pack Location thoracolumbar spines Patient Position Hooklying Treatment Duration (minutes) 15 Patient Tolerance Good PT-OP-S Aquatic Treatment Start: 02/19/18 09:50 Freq: Status: Active Protocol: Document 03/26/18 16:44 SAK (Rec: 03/26/18 16:52 [facility] [id number]) Aquatics Treatment Pool Entry/Exit Pool Entry/Exit Method Stairs Assistance Standby Assistance Water Walking Other- 1 Water Level Chest Level Level of Assistance Standby Assistance Comments forward, side, back directional change Lower Extremity Exercises 3 Details hip flex/ext, ab/ad, circles Body Position Standing Water Level Chest Level Comments postural and core stabilization emphasis 2 Details hamstring stretch Body Position Standing Water Level Chest Level Equipment Small Noodle Lower Extremity Stretches 1 Details HS w/sm noodle Body Position Standing Water Level Waist Level Equipment Small Noodle Upper Extremity Exercises 1 Details shoulder horizontal ab/ad (stas and lunil) Body Position Standing Water Level Chest Level Equipment UE paddles Reps/Duration 10x ea Comments DLS emphasis Upper Extremity Stretches 1 Details shoulder stretch Body Position Standing Water Level Waist Level Equipment [place] Float Reps/Duration arm drag holding smiley faces Spinal Exercises 1 Details wall squat with UE movement Body Position Sitting Reps/Duration x 10 each direction Comments UE fl/ex, wipers, ab/ad with bent arms [place] Activities [place] Activities Bicycle [place] Hip Abduction/Adduction Other Activities gentle intervals 15/30 x 8 reps corner leg lifts x 5 for ab strengthening corner hip extension Equipment flotation belt PT-OP-T Assessment and Plan Start: 02/19/18 09:50 Freq: Status: Active Protocol: Document 03/26/18 16:44 [facility] (Rec: 03/26/18 16:52 [facility] [id number]) Physical Therapy Assessment Goals Three Impairment Strength Short Term Goal (STG) Patient will be instructed in a HEP and aquatic exercise program for strengthening, ROM , and postural correction STG Duration 6 wks Correction Goal (LTG) Patient will be independent with HEP and aquatic exercise program and demonstrate an improvement in strength of trunk and LE's to at least 4/5 LTG Duration 12 wks Two Impairment Functional mobility Short Term Goal (STG) Patient will be able to perform household ambulation with min to no increase in pain STG Duration 6 wks Fleet Sales Manager Goal (LTG) Patient will be able to ambulate for short community distances with minimal to no increase in pain using least- restrictive assistive device LTG Duration 12 wks One Impairment Activity tolerance Short Term Goal (STG) Improve Oswestry disability score by 10 points STG Duration 6 wks Correction Goal (LTG) Improve Oswestry disability score to no greater than 25% LTG Duration 12 wks Assessment Summary Assessment Tolerated increase in exercise intensity well today, additional 2 interval sets. Improving postural awareness. Physical Therapy Plan Frequency and Duration Frequency of Treatment 2x/Week Duration of Treatment 12 wks Plan of Care Start Date 02/19/18 Plan of Care End Date 05/22/18 Next Visit Focus/Plan Next Note Type Treatment Note Next Visit Plan Continue aquatic therapy per POC for strengthening, flexibility, pain management, core stabilization.
--- NOTE | 2018-04-11 15:24 | PT.OTN ---
Current Diagnoses Low back pain (04/11/18) Physical Therapy Treatment Note PT-OP-A Visit Information Start: 02/19/18 09:50 Freq: Status: Active Protocol: Document 04/11/18 12:30 LJ (Rec: 04/11/18 15:24 LJ [id number]) Out-Patient Physical Therapy Visit Information Visit Information Visit Type Treatment Note Visit Start Time 12:30 Visit Stop Time 13:15 Total Visit Minutes 45 Visit Number 8 Number of CONCEPTOR Visits 1 Evaluation Information Evaluation Date 02/19/18 PT-OP-B Current Condition Start: 02/19/18 09:50 Freq: Status: Active Protocol: Document 02/19/18 09:51 SAK (Rec: 02/19/18 10:33 SAK [id number]) Current Condition History of Current Condition Onset Date 2 years Current Complaints LBP, muscle spasms, right hip pain, bilateral knee pain right > left, weakn History of Current Condition diagnosed of a-fib 2 years ago , then edema and cellulitis and increase in neuropathy right foot. At this time c/o back spasms, constant sciatic nerve pain, right hip pain ( injection 2-4 months ago). Increasingly stooped over due to muscle spasms in back. Uses 4WW at home, trekking poles in the community. Pain increases with sitting ( especially in car), standing, walking. Reports 20# weight gain since being put on Prednisone. States she knows losing weight would be helpful for her pain. Prior Treatments and Tests Prior laminectomy 2011, not successful. Has had injections, not successful. MRI 18 months ago; further deterioration of lumbar spine Treatment Goals Patient/Caregiver Goals Learn land-based exercises, do aquatic therapy both to decrease pain, improve strength and mobility, activity tolerance. 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 Functional Limitations- Recreation/ limited to sitting Hobbies Personal Factors Other Personal Factors That May Effect chronicity of condition Therapy/Recovery PT-OP-C Subjective Start: 02/19/18 09:50 Freq: Status: Active Protocol: Document 04/11/18 12:30 LJ (Rec: 04/11/18 15:24 LJ [id number]) OP-PT Subjective Patient Comments Patient Comments Pt reports feeling like her R knee Elizabeth's cyst is coming back d/t lack of ROM PT-OP-G Mobility & Gait Start: 02/19/18 09:50 Freq: Status: Active Protocol: Document 02/19/18 09:51 SAK (Rec: 02/23/18 16:04 SAK [id number]) OP Mobility Evaluation Transfers Sit to Stand requires use of UE's, painful Bed to Chair Transfers painful Car Transfers difficult and painful Floor Transfers unable Functional Movements Lifting and Carrying painful Squats unable, painful Running Assessment painful OP Gait Assessment Gait Gait Assistance Required: Independent Gait Deviations General Gait Pattern Antalgic Decreased Stride Length Decreased Feet Clearance Flexed Trunk Comments Gait Comments using [place] pole today, uses 4WW at home Stair Climbing Evaluation Technique/Endurance Stair Climbing Technique Step to Step Comments Stair Climbing Comments requires stas UE use PT-OP-K Range of Motion Start: 02/19/18 09:50 Freq: Status: Active Protocol: Document 02/19/18 09:51 SAK (Rec: 02/23/18 16:04 [facility] [id number]) Lumbar Spine Range of Motion Lumbar Spine Active Comments forward flexion WNL otherwise moderately decreased with less than neutral extension Hip Goniometric Range of Motion Hip ROM Limitations Comments Stas hips moderately decreased with less than neutral hip extension, grossly -10. IR limited to 10 right, 20 left. Knee Goniometric Range of Motion Knee ROM Limitations Comments Lacking full extension stas knees right greater than left PT-OP-M Strength Start: 02/19/18 09:50 Freq: Status: Active Protocol: Document 02/19/18 09:51 [facility] (Rec: 02/23/18 16:04 [facility] [id number]) Trunk Strength Trunk Manual Muscle Testing Flexion 3- Fair- Extension 2 Poor Hip Strength Hip Manual Muscle Testing Left Flexion (L2) 4 Good Extension (S1) 3- Fair- Abduction 3+ Fair+ External Rotation 4- Good- Internal Rotation 4- Good- Right Flexion (L2) 4- Good- Extension (S1) 2+ Poor+ Abduction 3- Fair- External Rotation 3+ Fair+ Internal Rotation 4 Good Knee Strength Knee Manual Muscle Testing Left Flexion (S2) 4 Good Extension (L3) 4 Good Right Flexion (S2) 4- Good- Extension (L3) 4- Good- Comments painful Ankle/Foot Strength Ankle and Foot Manual Muscle Testing Left Dorsiflexion (L4) 4+ Good+ Plantarflexion (S1) 4+ Good+ Right Dorsiflexion (L4) 4+ Good+ Plantarflexion (S1) 4+ Good+ PT-OP-Q Treatments Start: 02/19/18 09:50 Freq: Status: Active Protocol: Document 02/19/18 09:51 SAK (Rec: 02/23/18 16:04 SAK [id number]) Self-Care/Home Management Treatment Education Patient Education Home Exercise Program Posture Other Education issued written program PT-OP-R Modalities Start: 02/19/18 09:50 Freq: Status: Active Protocol: Document 02/19/18 09:51 SAK (Rec: 02/23/18 16:04 SAK [id number]) Hot Pack/Cold Pack Treatment Hot Pack Location thoracolumbar spines Patient Position Hooklying Treatment Duration (minutes) 15 Patient Tolerance Good PT-OP-S Aquatic Treatment Start: 02/19/18 09:50 Freq: Status: Active Protocol: Document 04/11/18 12:30 LJ (Rec: 04/11/18 15:24 LJ [id number]) Aquatics Treatment Pool Entry/Exit Pool Entry/Exit Method Stairs Assistance Independent Water Walking Other- 1 Water Level Chest Level Level of Assistance Standby Assistance Lower Extremity Exercises 6 Details TKE bilat in squat position against wall Body Position Sitting Water Level Chest Level Equipment Resistance Fins Reps/Duration 10 5 Details horiz ab/ad w/pink noodle under ankle; LE slightly submerged Body Position Standing Water Level Waist Level Equipment Small Noodle Reps/Duration 10 bilat 4 Details step-ups Body Position Standing Equipment Large Noodle Reps/Duration 10x 3 Details hip flex/ext, ab/ad, circles Body Position Standing Water Level Chest Level Comments postural and core stabilization emphasis 2 Details hamstring stretch Body Position Standing Water Level Chest Level Equipment Small Noodle 1 Details SKTC, DKTC Body Position Standing Water Level [place] Comments wall Lower Extremity Stretches 1 Details HS w/sm noodle Body Position Standing Water Level Waist Level Equipment Small Noodle Upper Extremity Exercises 1 Details shoulder horizontal ab/ad (stas and lunil) Body Position Standing Water Level Chest Level Equipment UE paddles Reps/Duration 10x ea Comments DLS emphasis Upper Extremity Stretches 1 Details shoulder stretch Body Position Standing Comments walking with noodle behind back. Spinal Exercises 1 Details wall squat with UE movement Body Position Sitting Reps/Duration x 10 each direction Comments UE fl/ex, wipers, ab/ad with bent arms [place] Activities [place] Activities Bicycle Cross [place] Hip Abduction/Adduction Other Activities gentle intervals 15/30 x 8 reps corner leg lifts x 5 for ab strengthening PT-OP-T Assessment and Plan Start: 02/19/18 09:50 Freq: Status: Active Protocol: Document 04/11/18 12:30 LJ (Rec: 04/11/18 15:24 LJ [id number]) Physical Therapy Assessment Goals Three Impairment Strength Short Term Goal (STG) Patient will be instructed in a HEP and aquatic exercise program for strengthening, ROM , and postural correction STG Duration 6 wks Silverlight Developer Goal (LTG) Patient will be independent with HEP and aquatic exercise program and demonstrate an improvement in strength of trunk and LE's to at least 4/5 LTG Duration 12 wks Two Impairment Functional mobility Short Term Goal (STG) Patient will be able to perform household ambulation with min to no increase in pain STG Duration 6 wks Fpc Goal (LTG) Patient will be able to ambulate for short community distances with minimal to no increase in pain using least- restrictive assistive device LTG Duration 12 wks One Impairment Activity tolerance Short Term Goal (STG) Improve Oswestry disability score by 10 points STG Duration 6 wks Silverlight Developer Goal (LTG) Improve Oswestry disability score to no greater than 25% LTG Duration 12 wks Assessment Summary Assessment Pt improving posture on step ups on boxes. Shows confusion with muscle activation sequence glutes, core, shoulders. Physical Therapy Plan Frequency and Duration Frequency of Treatment 2x/Week Duration of Treatment 12 wks Plan of Care Start Date 02/19/18 Plan of Care End Date 05/22/18 Next Visit Focus/Plan Next Note Type Treatment Note Next Visit Plan Continue aquatic therapy for core and glute strengthening in particulae. Work on muscle activation sequencing abd proper posture for gait.
--- NOTE | 2018-05-11 12:17 | PT.OTN ---
Current Diagnoses Low back pain (05/09/18) Physical Therapy Treatment Note PT-OP-A Visit Information Start: 02/19/18 09:50 Freq: Status: Active Protocol: Document 05/09/18 10:15 SAK (Rec: 05/11/18 12:17 [facility] [id number]) Out-Patient Physical Therapy Visit Information Visit Information Visit Type Aquatic Treatment Note Visit Start Time 10:15 Visit Stop Time 11:00 Total Visit Minutes 45 Visit Number 9 Number of CONVENIENCE STORE MANAGER Visits 0 Evaluation Information Evaluation Date 02/19/18 PT-OP-B Current Condition Start: 02/19/18 09:50 Freq: Status: Active Protocol: Document 02/19/18 09:51 SAK (Rec: 02/19/18 10:33 SAK [id number]) Current Condition History of Current Condition Onset Date 2 years Current Complaints LBP, muscle spasms, right hip pain, bilateral knee pain right > left, weakn History of Current Condition diagnosed of a-fib 2 years ago , then edema and cellulitis and increase in neuropathy right foot. At this time c/o back spasms, constant sciatic nerve pain, right hip pain ( injection 2-4 months ago). Increasingly stooped over due to muscle spasms in back. Uses 4WW at home, trekking poles in the community. Pain increases with sitting ( especially in car), standing, walking. Reports 20# weight gain since being put on Prednisone. States she knows losing weight would be helpful for her pain. Prior Treatments and Tests Prior laminectomy 2011, not successful. Has had injections, not successful. MRI 18 months ago; further deterioration of lumbar spine Treatment Goals Patient/Caregiver Goals Learn land-based exercises, do aquatic therapy both to decrease pain, improve strength and mobility, activity tolerance. 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 PT-OP-G Mobility & Gait Start: 02/19/18 09:50 Freq: Status: Active Protocol: Document 02/19/18 09:51 [facility] (Rec: 02/23/18 16:04 [facility] [id number]) OP Mobility Evaluation Transfers Sit to Stand requires use of UE's, painful Bed to Chair Transfers painful Car Transfers difficult and painful Floor Transfers unable Functional Movements Lifting and Carrying painful Squats unable, painful Running Assessment painful OP Gait Assessment Gait Gait Assistance Required: Independent Gait Deviations General Gait Pattern Antalgic Decreased Stride Length Decreased Feet Clearance Flexed Trunk Comments Gait Comments using Converged Accessing pole today, uses 4WW at home Stair Climbing Evaluation Technique/Endurance Stair Climbing Technique Step to Step Comments Stair Climbing Comments requires stas UE use PT-OP-K Range of Motion Start: 02/19/18 09:50 Freq: Status: Active Protocol: Document 02/19/18 09:51 [facility] (Rec: 02/23/18 16:04 [facility] [id number]) Lumbar Spine Range of Motion Lumbar Spine Active Comments forward flexion WNL otherwise moderately decreased with less than neutral extension Hip Goniometric Range of Motion Hip ROM Limitations Comments Stas hips moderately decreased with less than neutral hip extension, grossly -10. IR limited to 10 right, 20 left. Knee Goniometric Range of Motion Knee ROM Limitations Comments Lacking full extension stas knees right greater than left PT-OP-M Strength Start: 02/19/18 09:50 Freq: Status: Active Protocol: Document 02/19/18 09:51 [facility] (Rec: 02/23/18 16:04 [facility] [id number]) Trunk Strength Trunk Manual Muscle Testing Flexion 3- Fair- Extension 2 Poor Hip Strength Hip Manual Muscle Testing Left Flexion (L2) 4 Good Extension (S1) 3- Fair- Abduction 3+ Fair+ External Rotation 4- Good- Internal Rotation 4- Good- Right Flexion (L2) 4- Good- Extension (S1) 2+ Poor+ Abduction 3- Fair- External Rotation 3+ Fair+ Internal Rotation 4 Good Knee Strength Knee Manual Muscle Testing Left Flexion (S2) 4 Good Extension (L3) 4 Good Right Flexion (S2) 4- Good- Extension (L3) 4- Good- Comments painful Ankle/Foot Strength Ankle and Foot Manual Muscle Testing Left Dorsiflexion (L4) 4+ Good+ Plantarflexion (S1) 4+ Good+ Right Dorsiflexion (L4) 4+ Good+ Plantarflexion (S1) 4+ Good+ PT-OP-Q Treatments Start: 02/19/18 09:50 Freq: Status: Active Protocol: Document 02/19/18 09:51 [facility] (Rec: 02/23/18 16:04 [facility] [id number]) Self-Care/Home Management Treatment Education Patient Education Home Exercise Program Posture Other Education issued written program PT-OP-R Modalities Start: 02/19/18 09:50 Freq: Status: Active Protocol: Document 02/19/18 09:51 [facility] (Rec: 02/23/18 16:04 [facility] [id number]) Hot Pack/Cold Pack Treatment Hot Pack Location thoracolumbar spines Patient Position Hooklying Treatment Duration (minutes) 15 Patient Tolerance Good PT-OP-S Aquatic Treatment Start: 02/19/18 09:50 Freq: Status: Active Protocol: Document 05/09/18 10:15 [facility] (Rec: 05/11/18 12:17 [facility] [id number]) Aquatics Treatment Pool Entry/Exit Pool Entry/Exit Method Stairs Assistance Independent Water Walking Other- 1 Water Level Chest Level Level of Assistance Standby Assistance Verbal Cues Comments cues for posture, core stab Lower Extremity Exercises 6 Details TKE bilat in squat position against wall Body Position Sitting Water Level Chest Level Equipment Resistance Fins Reps/Duration 10 3 Details hip flex/ext, ab/ad, circles Body Position Standing Water Level Chest Level Comments postural and core stabilization emphasis 2 Details hamstring stretch Body Position Standing Water Level Chest Level Equipment Small Noodle 1 Details SKTC, DKTC Body Position Standing Water Level [place] Comments wall Lower Extremity Stretches hip flexor stretch Details lunge Body Position Standing Water Level Chest Level 1 Details HS w/sm noodle Body Position Standing Water Level Waist Level Equipment Small Noodle Comments also hip add, ITB Upper Extremity Exercises 1 Details shoulder horizontal ab/ad (stas and lunil) Body Position Standing Water Level Chest Level Equipment UE paddles Reps/Duration 10x ea Comments DLS emphasis Upper Extremity Stretches 1 Details shoulder stretch Body Position Standing Comments walking with noodle behind back. Spinal Exercises 1 Details wall squat with UE movement Body Position Sitting Reps/Duration x 10 each direction Comments UE fl/ex, wipers, ab/ad with bent arms [place] Activities [place] Activities Bicycle [place] Hip Abduction/Adduction Other Activities gentle intervals 15/30 x 8 reps corner leg lifts x 5 for ab strengthening PT-OP-T Assessment and Plan Start: 02/19/18 09:50 Freq: Status: Active Protocol: Document 05/09/18 10:15 [facility] (Rec: 05/11/18 12:17 [facility] [id number]) Physical Therapy Assessment Goals Three Impairment Strength Short Term Goal (STG) Patient will be instructed in a HEP and aquatic exercise program for strengthening, ROM , and postural correction STG Duration 6 wks [facility] Goal (LTG) Patient will be independent with HEP and aquatic exercise program and demonstrate an improvement in strength of trunk and LE's to at least 4/5 LTG Duration 12 wks Two Impairment Functional mobility Short Term Goal (STG) Patient will be able to perform household ambulation with min to no increase in pain STG Duration 6 wks Hide Or Skin Buffer Goal (LTG) Patient will be able to ambulate for short community distances with minimal to no increase in pain using least- restrictive assistive device LTG Duration 12 wks One Impairment Activity tolerance Short Term Goal (STG) Improve Oswestry disability score by 10 points STG Duration 6 wks [facility] Goal (LTG) Improve Oswestry disability score to no greater than 25% LTG Duration 12 wks Assessment Summary Assessment Patient requires moderate cues for exercise performance related to posture and core stabilization, correct muscle activation. Discussed her hiring customer service trainer to assist with indep aquatic exercise program after discharge from PT. Physical Therapy Plan Frequency and Duration Frequency of Treatment 2x/Week Duration of Treatment 12 wks Plan of Care Start Date 02/19/18 Plan of Care End Date 05/22/18 Next Visit Focus/Plan Next Note Type Progress Note Next Visit Plan Continue aquatic PT, emphasis on core stab, posture, muscular activation especially with stairs.
--- NOTE | 2018-05-14 16:31 | PT.OTN ---
Current Diagnoses Low back pain (05/09/18) Physical Therapy Treatment Note PT-OP-A Visit Information Start: 02/19/18 09:50 Freq: Status: Active Protocol: Document 05/14/18 12:38 LJ (Rec: 05/14/18 16:31 LJ [id number]) Out-Patient Physical Therapy Visit Information Visit Information Visit Type Aquatic Treatment Note Visit Start Time 12:38 Visit Stop Time 13:10 Total Visit Minutes 32 Visit Number 10 Number of FORMULATION SCIENTIST Visits 1 Evaluation Information Evaluation Date 02/19/18 PT-OP-B Current Condition Start: 02/19/18 09:50 Freq: Status: Active Protocol: Document 02/19/18 09:51 SAK (Rec: 02/19/18 10:33 SAK [id number]) Current Condition History of Current Condition Onset Date 2 years Current Complaints LBP, muscle spasms, right hip pain, bilateral knee pain right > left, weakn History of Current Condition diagnosed of a-fib 2 years ago , then edema and cellulitis and increase in neuropathy right foot. At this time c/o back spasms, constant sciatic nerve pain, right hip pain ( injection 2-4 months ago). Increasingly stooped over due to muscle spasms in back. Uses 4WW at home, trekking poles in the community. Pain increases with sitting ( especially in car), standing, walking. Reports 20# weight gain since being put on Prednisone. States she knows losing weight would be helpful for her pain. Prior Treatments and Tests Prior laminectomy 2011, not successful. Has had injections, not successful. MRI 18 months ago; further deterioration of lumbar spine Treatment Goals Patient/Caregiver Goals Learn land-based exercises, do aquatic therapy both to decrease pain, improve strength and mobility, activity tolerance. 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 Space available in therapy schedule so she began therapy session after doing deep water intervals on her own. PT-OP-G Mobility & Gait Start: 02/19/18 09:50 Freq: Status: Active Protocol: Document 02/19/18 09:51 SAK (Rec: 02/23/18 16:04 SAK [id number]) OP Mobility Evaluation Transfers Sit to Stand requires use of UE's, painful Bed to Chair Transfers painful Car Transfers difficult and painful Floor Transfers unable Functional Movements Lifting and Carrying painful Squats unable, painful Running Assessment painful OP Gait Assessment Gait Gait Assistance Required: Independent Gait Deviations General Gait Pattern Antalgic Decreased Stride Length Decreased Feet Clearance Flexed Trunk Comments Gait Comments using [employer] pole today, uses 4WW at home Stair Climbing Evaluation Technique/Endurance Stair Climbing Technique Step to Step Comments Stair Climbing Comments requires stas UE use PT-OP-K Range of Motion Start: 02/19/18 09:50 Freq: Status: Active Protocol: Document 02/19/18 09:51 SAK (Rec: 02/23/18 16:04 SAK [id number]) Lumbar Spine Range of Motion Lumbar Spine Active Comments forward flexion WNL otherwise moderately decreased with less than neutral extension Hip Goniometric Range of Motion Hip ROM Limitations Comments Stas hips moderately decreased with less than neutral hip extension, grossly -10. IR limited to 10 right, 20 left. Knee Goniometric Range of Motion Knee ROM Limitations Comments Lacking full extension stas knees right greater than left PT-OP-M Strength Start: 02/19/18 09:50 Freq: Status: Active Protocol: Document 02/19/18 09:51 SAK (Rec: 02/23/18 16:04 SAK [id number]) Trunk Strength Trunk Manual Muscle Testing Flexion 3- Fair- Extension 2 Poor Hip Strength Hip Manual Muscle Testing Left Flexion (L2) 4 Good Extension (S1) 3- Fair- Abduction 3+ Fair+ External Rotation 4- Good- Internal Rotation 4- Good- Right Flexion (L2) 4- Good- Extension (S1) 2+ Poor+ Abduction 3- Fair- External Rotation 3+ Fair+ Internal Rotation 4 Good Knee Strength Knee Manual Muscle Testing Left Flexion (S2) 4 Good Extension (L3) 4 Good Right Flexion (S2) 4- Good- Extension (L3) 4- Good- Comments painful Ankle/Foot Strength Ankle and Foot Manual Muscle Testing Left Dorsiflexion (L4) 4+ Good+ Plantarflexion (S1) 4+ Good+ Right Dorsiflexion (L4) 4+ Good+ Plantarflexion (S1) 4+ Good+ PT-OP-Q Treatments Start: 02/19/18 09:50 Freq: Status: Active Protocol: Document 02/19/18 09:51 SAK (Rec: 02/23/18 16:04 SAK [id number]) Self-Care/Home Management Treatment Education Patient Education Home Exercise Program Posture Other Education issued written program PT-OP-R Modalities Start: 02/19/18 09:50 Freq: Status: Active Protocol: Document 02/19/18 09:51 SAK (Rec: 02/23/18 16:04 SAK [id number]) Hot Pack/Cold Pack Treatment Hot Pack Location thoracolumbar spines Patient Position Hooklying Treatment Duration (minutes) 15 Patient Tolerance Good PT-OP-S Aquatic Treatment Start: 02/19/18 09:50 Freq: Status: Active Protocol: Document 05/14/18 12:38 LJ (Rec: 05/14/18 16:31 LJ [id number]) Aquatics Treatment Pool Entry/Exit Pool Entry/Exit Method Stairs Assistance Independent Water Walking Quick Reverses Level of Assistance Verbal Cues Comments lacks core muscle activation Other- 1 Water Level Chest Level Level of Assistance Standby Assistance Verbal Cues Comments cues for posture, core stab Lower Extremity Exercises 5 Details horiz ab/ad Body Position Standing Water Level Waist Level Reps/Duration 10 bilat 3 Details hip flex/ext, ab/ad, circles Body Position Standing Water Level Chest Level Comments postural and core stabilization emphasis Lower Extremity Stretches 1 Details HS w/sm noodle Body Position Standing Water Level Waist Level Equipment Small Noodle Comments also hip add, ITB Upper Extremity Exercises 1 Equipment UE paddles Upper Extremity Stretches 1 Details shoulder stretch Body Position Standing Comments walking with noodle behind back. Spinal Exercises 1 Details wall squat with UE movement Body Position Sitting Reps/Duration x 10 each direction Comments UE fl/ex, wipers, ab/ad with bent arms [place] Activities [place] Activities Cross [place] Hip Abduction/Adduction Other Activities SLR w/barbells for stability- no belt- x 10 Crunches x 10 Comments Mod cues for muscle sequencing PT-OP-T Assessment and Plan Start: 02/19/18 09:50 Freq: Status: Active Protocol: Document 05/14/18 12:38 NAVNEET (Rec: 05/14/18 16:31 NAVNEET [id number]) Physical Therapy Assessment Goals Three Impairment Strength Short Term Goal (STG) Patient will be instructed in a HEP and aquatic exercise program for strengthening, ROM , and postural correction STG Duration 6 wks Half-Way Goal (LTG) Patient will be independent with HEP and aquatic exercise program and demonstrate an improvement in strength of trunk and LE's to at least 4/5 LTG Duration 12 wks Two Impairment Functional mobility Short Term Goal (STG) Patient will be able to perform household ambulation with min to no increase in pain STG Duration 6 wks Half-Way Goal (LTG) Patient will be able to ambulate for short community distances with minimal to no increase in pain using least- restrictive assistive device LTG Duration 12 wks One Impairment Activity tolerance Short Term Goal (STG) Improve Oswestry disability score by 10 points STG Duration 6 wks Insurance Loss Assessor Goal (LTG) Improve Oswestry disability score to no greater than 25% LTG Duration 12 wks Assessment Summary Assessment Patient requires moderate cues for exercise performance related to posture and core stabilization, correct muscle activation. Pt demonstrates lack of postural awareness and decreased control with gait during quick reverses. Physical Therapy Plan Frequency and Duration Frequency of Treatment 2x/Week Duration of Treatment 12 wks Plan of Care Start Date 02/19/18 Plan of Care End Date 05/22/18 Next Visit Focus/Plan Next Note Type Progress Note Next Visit Plan Progress pt to community based aquatic information security specialist.
--- NOTE | 2018-08-05 14:16 | PT.OPDS ---
Current Diagnoses Low back pain (05/09/18) Provider Visit Care Team Role Provider Type Mehul Pérez MD Attending Provider Physician Family Provider Primary Care Provider Specialty: Internal Medicine Address: [address] [place] [address], [facility] Email: Visit Number Visit Number 10 Discharge Summary PT-OP-B Current Condition Start: 02/19/18 09:50 Freq: Status: Active Protocol: Document 02/19/18 09:51 SAK (Rec: 02/19/18 10:33 SAK [id number]) Current Condition History of Current Condition Onset Date 2 years Current Complaints LBP, muscle spasms, right hip pain, bilateral knee pain right > left, weakn History of Current Condition diagnosed of a-fib 2 years ago , then edema and cellulitis and increase in neuropathy right foot. At this time c/o back spasms, constant sciatic nerve pain, right hip pain ( injection 2-4 months ago). Increasingly stooped over due to muscle spasms in back. Uses 4WW at home, trekking poles in the community. Pain increases with sitting ( especially in car), standing, walking. Reports 20# weight gain since being put on Prednisone. States she knows losing weight would be helpful for her pain. Prior Treatments and Tests Prior laminectomy 2011, not successful. Has had injections, not successful. MRI 18 months ago; further deterioration of lumbar spine Treatment Goals Patient/Caregiver Goals Learn land-based exercises, do aquatic therapy both to decrease pain, improve strength and mobility, activity tolerance. 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 Space available in therapy schedule so she began therapy session after doing deep water intervals on her own. PT-OP-G Mobility & Gait Start: 02/19/18 09:50 Freq: Status: Active Protocol: Document 02/19/18 09:51 [facility] (Rec: 02/23/18 16:04 [facility] [id number]) OP Mobility Evaluation Transfers Sit to Stand requires use of UE's, painful Bed to Chair Transfers painful Car Transfers difficult and painful Floor Transfers unable Functional Movements Lifting and Carrying painful Squats unable, painful Running Assessment painful OP Gait Assessment Gait Gait Assistance Required: Independent Gait Deviations General Gait Pattern Antalgic Decreased Stride Length Decreased Feet Clearance Flexed Trunk Comments Gait Comments using Scribding pole today, uses 4WW at home Stair Climbing Evaluation Technique/Endurance Stair Climbing Technique Step to Step Comments Stair Climbing Comments requires stas UE use PT-OP-K Range of Motion Start: 02/19/18 09:50 Freq: Status: Active Protocol: Document 02/19/18 09:51 [facility] (Rec: 02/23/18 16:04 [facility] [id number]) Lumbar Spine Range of Motion Lumbar Spine Active Comments forward flexion WNL otherwise moderately decreased with less than neutral extension Hip Goniometric Range of Motion Hip ROM Limitations Comments Stas hips moderately decreased with less than neutral hip extension, grossly -10. IR limited to 10 right, 20 left. Knee Goniometric Range of Motion Knee ROM Limitations Comments Lacking full extension stas knees right greater than left PT-OP-M Strength Start: 02/19/18 09:50 Freq: Status: Active Protocol: Document 02/19/18 09:51 [facility] (Rec: 02/23/18 16:04 [facility] [id number]) Trunk Strength Trunk Manual Muscle Testing Flexion 3- Fair- Extension 2 Poor Hip Strength Hip Manual Muscle Testing Left Flexion (L2) 4 Good Extension (S1) 3- Fair- Abduction 3+ Fair+ External Rotation 4- Good- Internal Rotation 4- Good- Right Flexion (L2) 4- Good- Extension (S1) 2+ Poor+ Abduction 3- Fair- External Rotation 3+ Fair+ Internal Rotation 4 Good Knee Strength Knee Manual Muscle Testing Left Flexion (S2) 4 Good Extension (L3) 4 Good Right Flexion (S2) 4- Good- Extension (L3) 4- Good- Comments painful Ankle/Foot Strength Ankle and Foot Manual Muscle Testing Left Dorsiflexion (L4) 4+ Good+ Plantarflexion (S1) 4+ Good+ Right Dorsiflexion (L4) 4+ Good+ Plantarflexion (S1) 4+ Good+ PT-OP-T Assessment and Plan Start: 02/19/18 09:50 Freq: Status: Active Protocol: Document 08/05/18 14:14 [facility] (Rec: 08/05/18 14:16 [facility] [id number]) Physical Therapy Assessment Goals Three Impairment Strength Short Term Goal (STG) Patient will be instructed in a HEP and aquatic exercise program for strengthening, ROM , and postural correction STG Duration 6 wks Senior Accounts Payable Clerk Goal (LTG) Patient will be independent with HEP and aquatic exercise program and demonstrate an improvement in strength of trunk and LE's to at least 4/5 LTG Duration 12 wks Two Impairment Functional mobility Short Term Goal (STG) Patient will be able to perform household ambulation with min to no increase in pain STG Duration 6 wks Senior Accounts Payable Clerk Goal (LTG) Patient will be able to ambulate for short community distances with minimal to no increase in pain using least- restrictive assistive device LTG Duration 12 wks One Impairment Activity tolerance Short Term Goal (STG) Improve Oswestry disability score by 10 points STG Duration 6 wks Senior Accounts Payable Clerk Goal (LTG) Improve Oswestry disability score to no greater than 25% LTG Duration 12 wks Assessment Summary Assessment Patient has made some progress toward goals, though progress has plateaued and patient has requested discharge to a community-based aquatic exercise program. Plans to work with aquatic sales operations specialist as discussed previously with her. Physical Therapy Plan Discharge Physical Therapy Discharge Reasons Patient Request
== END 2018-08-05 16:35 ==
LOC: PHYS 10:15
PROVIDERS: Family Provider Internal Medicine; PCP Internal Medicine; Visit Provider Internal Medicine
DX: M54.5 Low back pain (principal)
CPT/HCPCS: 97010; 97113; 97162; 97535

== ENCOUNTER → 2019-04-07 12:30 | Outpatient (CLI) | payer OTHER, SELFPAY ==
--- NOTE | 2019-04-07 | DI.RAD.S_ITS ---
PROCEDURE: XR THORACIC SPINE 3V INDICATIONS: mid back pain TECHNIQUE: 2 views of the thoracic spine were acquired. COMPARISON: None. FINDINGS: Bones: Diffuse spondylosis. No fracture. Multilevel facet arthropathy. Mild diffuse disc space narrowing. Soft tissues: No paravertebral stripe thickening. IMPRESSION: No fracture. Diffuse discogenic changes. If the patient's pain or other symptoms persist, consider further evaluation with MRI Dictated by: Georges Luciano M.D. on 04/08/2019 at 16:29 Approved by: Georges Luciano M.D. on 04/08/2019 at 17:13
== END ==
PROVIDERS: Family Provider Internal Medicine; PCP Internal Medicine; Visit Provider Internal Medicine
DX: M54.6 Pain in thoracic spine (principal); M47.814 Spondylosis without myelopathy or radiculopathy, thoracic region
CPT/HCPCS: 72072

== ENCOUNTER → 2019-05-21 15:04 | Outpatient (CLI) | payer OTHER, SELFPAY ==
--- NOTE | 2019-05-21 | DI.MG.S_ITS ---
BILATERAL DIGITAL SCREENING MAMMOGRAM 3D/2D WITH CAD: 05/21/2019 CLINICAL: Routine screening. Comparison is made to exams dated: 03/07/2018 mammogram, 07/19/2016 mammogram, and 07/06/2014 mammogram - [facility]. The tissue of both breasts is heterogeneously dense. This may lower the sensitivity of mammography. Current study was also evaluated with a Computer Aided Detection (CAD) system. There are benign calcifications in both breasts. No significant masses, calcifications, or other findings are seen in either breast. There has been no significant interval change. IMPRESSION: There is no mammographic evidence of malignancy. A 1 year screening mammogram is recommended. This exam was interpreted at Station ID: [id number]. NOTE: For mammograms, a report in lay terms will be sent to the patient. Approximately 15% of breast malignancies will not be visualized mammographically. In the management of a palpable breast mass, a negative mammogram must not discourage biopsy of a clinically suspicious lesion. Electronically Signed By: Sina ramírez/magdalena:05/21/2019 21:08:25 letter sent: Normal Exam ACR BI-RADS Category 2: Benign Finding(s) 3342F
== END ==
PROVIDERS: PCP Internal Medicine; Visit Provider Internal Medicine
DX: Z12.31 Encounter for screening mammogram for malignant neoplasm of breast (principal)
CPT/HCPCS: 77063; 77067

== ENCOUNTER → 2019-12-22 08:15 | Outpatient (CLI) | payer MEDICARE, SELFPAY ==
[2019-12-22 10:15] LABS: Alanine Aminotransferase 20 IU/L (<35); Albumin 4.1 g/dL (3.5-5.0); Albumin Globulin Ratio 1.4 (1.0-2.8); Alkaline Phosphatase 89 U/L (38-126); Aspartate Aminotransferase 24 IU/L (14-36); BUN Creatinine Ratio 27.8 (6-22); Blood Urea Nitrogen 20 mg/dL (7-17); Calcium 9.5 mg/dL (8.4-10.2); Carbon Dioxide 29 mmol/L (22-32); Chloride 101 mmol/L (98-107); Estimated Glomerular Filt Rate > 60.0 mL/min (>60); Globulin 2.9 g/dL (1.7-4.1); Glucose 115 mg/dL (80-110); HEMOLYSIS < 15 (0-50); Potassium 4.1 mmol/L (3.4-5.1); Sodium 137 mmol/L (137-145)
[2019-12-24 07:36] LABS: Cholesterol, Total 204 mg/dL (100-199); HDL-Cholesterol 65 mg/dL (>39); HDL-Particle (Total) 36.2 umol/L (>=30.5); LDL Particle 1481 nmol/L (<1000); LDL Size 21.9 nm (>20.5); LDL-Cholsterol 121 mg/dL (0-99); LP-IR Score 54 (<=45); Small LDL- Particle 292 nmol/L (<=527); Triglycerides 91 mg/dL (0-149)
== END ==
PROVIDERS: PCP Internal Medicine; Referring Provider Specialist; Visit Provider Specialist
DX: E78.5 Hyperlipidemia, unspecified (principal); I48.19 Other persistent atrial fibrillation
CPT/HCPCS: 36415; 80053; 80061; 83704; 83735

== ENCOUNTER → 2020-03-24 15:25 | Outpatient (ROUT) | payer MEDICARE, SELFPAY ==
[2020-03-24 15:50] LABS: Glucose 117 mg/dL (80-110)
[2020-03-24 16:41] LABS: Vitamin B12 376 pg/mL (239-931)
[2020-03-25 00:24] LABS: Hemoglobin A1C% w Est Avg Glu 5.8 % (4.0-6.0)
[2020-03-28 15:43] LABS: Albumin 3.4 g/dL (2.9-4.4); Alpha-1-Globulin 0.2 g/dL (0.0-0.4); Alpha-2-Globulin 0.7 g/dL (0.4-1.0); Gamma Globulin 0.8 g/dL (0.4-1.8); Globulin Total 2.6 g/dL (2.2-3.9)
[2020-05-03 10:52] LABS: COVID19 -Nasal RAPID Negative (Negative)
== END ==
PROVIDERS: Nurse Practitioner Family; PCP Internal Medicine; Visit Provider Internal Medicine
DX: E03.9 Hypothyroidism, unspecified (principal); E53.8 Deficiency of other specified B group vitamins; D47.2 Monoclonal gammopathy; R73.01 Impaired fasting glucose
CPT/HCPCS: 82607; 82947; 83036; 84155; 84165; 84443; 87635

== ENCOUNTER → 2020-07-11 10:44 | Outpatient (CLI) | payer MEDICARE, SELFPAY ==
--- NOTE | 2020-07-11 10:45 | DI.MG.S_ITS ---
BILATERAL DIGITAL SCREENING MAMMOGRAM 3D/2D WITH CAD: 07/11/2020 CLINICAL: Routine screening. Comparison is made to exams dated: 05/21/2019 mammogram, 03/07/2018 mammogram, and 07/19/2016 mammogram - [facility]. There are scattered fibroglandular elements in both breasts. Current study was also evaluated with a Computer Aided Detection (CAD) system. There are benign calcifications in both breasts. No significant masses, calcifications, or other findings are seen in either breast. There has been no significant interval change. IMPRESSION: BENIGN There is no mammographic evidence of malignancy. A 1 year screening mammogram is recommended. This exam was interpreted at Station ID: [id number]. NOTE: For mammograms, a report in lay terms will be sent to the patient. Approximately 15% of breast malignancies will not be visualized mammographically. In the management of a palpable breast mass, a negative mammogram must not discourage biopsy of a clinically suspicious lesion. Electronically Signed By: Bennie chavez/magdalena:07/11/2020 16:32:55 letter sent: Normal Exam ACR BI-RADS Category 2: Benign Finding(s) 3342F
== END ==
PROVIDERS: PCP Internal Medicine; Referring Provider Internal Medicine; Visit Provider Internal Medicine
DX: Z12.31 Encounter for screening mammogram for malignant neoplasm of breast (principal)
CPT/HCPCS: 77063; 77067

== ENCOUNTER → 2020-07-22 18:47 | Outpatient (ROUT) | payer OTHER, SELFPAY ==
[2020-07-22 19:36] LABS: Add Manual Diff / Slide Review NO; Basophils Absolute Auto 100 /uL (0-100); Basophils Percent Auto 0.8 % (0-2); Eosinophils Absolute Auto 100 /uL (0-450); Eosinophils Percent Auto 1.3 % (2-4); Hematocrit 43.5 % (36-46); Lymphocytes Absolute Auto 1300 /uL (1100-4500); Lymphocytes Percent Auto 17.8 % (25-40); Mean Corpuscular HGB Conc 32.1 % (30-36); Mean Corpuscular Hemoglobin 30.9 PG (26-34); Mean Corpuscular Volume 96.4 fL (80-100); Monocytes Absolute Auto 700 /uL (0-900); Monocytes Percent Auto 9.6 % (3-14); Neutrophils Absolute Auto 5300 /uL (1500-7000); Neutrophils Percent Auto 70.5 % (50-75); Platelet Count 275 X10^3/uL (150-400); Red Blood Cell Count 4.51 X10^6/uL (4.0-5.2); Red Cell Distribution Width 14.1 % (11.6-14.8); White Blood Cell Count 7.5 X10^3/uL (4.5-11.0)
[2020-07-22 19:42] LABS: Alanine Aminotransferase 15 IU/L (<35); Albumin 3.9 g/dL (3.5-5.0); Albumin Globulin Ratio 1.5 (1.0-2.8); Alkaline Phosphatase 103 U/L (38-126); Aspartate Aminotransferase 22 IU/L (14-36); BUN Creatinine Ratio 30.6 (6-22); Bilirubin Total 0.7 mg/dL (0.2-1.3); Bilirubin Unconjugated 0.6 mg/dL (0.0-1.1); Blood Urea Nitrogen 26 mg/dL (7-17); Calcium 9.3 mg/dL (8.4-10.2); Carbon Dioxide 29 mmol/L (22-32); Chloride 101 mmol/L (98-107); Estimated Glomerular Filt Rate > 60.0 mL/min (>60); Globulin 2.6 g/dL (1.7-4.1); Glucose 110 mg/dL (80-110); HEMOLYSIS < 15 (0-50); Potassium 4.2 mmol/L (3.4-5.1); Sodium 137 mmol/L (137-145); Total Protein 6.5 g/dL (6.3-8.2)
== END ==
PROVIDERS: PCP Internal Medicine; Visit Provider Physician Assistant
DX: K52.9 Noninfective gastroenteritis and colitis, unspecified (principal); I10 Essential (primary) hypertension
CPT/HCPCS: 80053; 80076; 85025

== ENCOUNTER → 2020-07-23 10:42 | Outpatient (CLI) | payer MEDICARE, SELFPAY ==
[2020-07-23 12:23] LABS: Clostridium Difficile Tox PCR Negative for C. diff
== END ==
PROVIDERS: PCP Internal Medicine; Referring Provider Physician Assistant; Visit Provider Physician Assistant
DX: I10 Essential (primary) hypertension (principal); K52.9 Noninfective gastroenteritis and colitis, unspecified
CPT/HCPCS: 87045; 87493; 87899

== ENCOUNTER → 2020-07-25 19:27 | Outpatient (ROUT) | payer OTHER, SELFPAY ==
[2020-07-25 20:26] LABS: BUN Creatinine Ratio 29.4 (6-22); Blood Urea Nitrogen 20 mg/dL (7-17); Calcium 9.1 mg/dL (8.4-10.2); Carbon Dioxide 28 mmol/L (22-32); Chloride 102 mmol/L (98-107); Cholesterol 127 mg/dL (140-199); Estimated Glomerular Filt Rate > 60.0 mL/min (>60); Glucose 107 mg/dL (80-110); HDL Cholesterol 61 mg/dL (40-60); HEMOLYSIS < 15 (0-50); LDL Cholesterol Calculated 46 mg/dL (<100); Magnesium 1.6 mg/dL (1.6-2.3); Potassium 3.9 mmol/L (3.4-5.1); Sodium 137 mmol/L (137-145); Triglycerides 99 mg/dL (35-150)
== END ==
PROVIDERS: PCP Internal Medicine; Visit Provider Internal Medicine
DX: E83.42 Hypomagnesemia (principal); I10 Essential (primary) hypertension; E78.2 Mixed hyperlipidemia
CPT/HCPCS: 80048; 80061; 83735

== ENCOUNTER → 2021-05-09 08:10 | Outpatient (CLI) | payer MEDICARE, SELFPAY ==
[2021-05-09 08:49] LABS: Hematocrit 42.5 % (36-46); Mean Corpuscular Hemoglobin 31.3 PG (26-34); Mean Corpuscular Volume 94.8 fL (80-100); Platelet Count 245 X10^3/uL (150-400); Red Blood Cell Count 4.48 X10^6/uL (4.0-5.2); Red Cell Distribution Width 14.3 % (11.6-14.8); White Blood Cell Count 6.4 X10^3/uL (4.5-11.0)
[2021-05-09 09:06] LABS: Alanine Aminotransferase 21 IU/L (<35); Albumin 4.1 g/dL (3.5-5.0); Albumin Globulin Ratio 1.5 (1.0-2.8); Alkaline Phosphatase 90 U/L (38-126); Aspartate Aminotransferase 27 IU/L (14-36); BUN Creatinine Ratio 22.9 (6-22); Blood Urea Nitrogen 16 mg/dL (7-17); Calcium 9.1 mg/dL (8.4-10.2); Carbon Dioxide 30 mmol/L (22-32); Chloride 99 mmol/L (98-107); Cholesterol 128 mg/dL (140-199); Estimated Glomerular Filt Rate > 60.0 mL/min (>60); Globulin 2.7 g/dL (1.7-4.1); Glucose 119 mg/dL (80-110); HDL Cholesterol 50 mg/dL (40-60); LDL Cholesterol Calculated 51 mg/dL (<100); Potassium 3.8 mmol/L (3.4-5.1); Sodium 136 mmol/L (137-145); Total Protein 6.8 g/dL (6.3-8.2); Triglycerides 135 mg/dL (35-150)
[2021-05-09 15:26] LABS: TSH w/ Reflex to FT4 1.82 uIU/mL (0.47-4.68)
[2021-05-09 15:34] LABS: HEMOLYSIS 20 (0-50); Magnesium 1.9 mg/dL (1.6-2.3)
== END ==
PROVIDERS: PCP Internal Medicine; Referring Provider Specialist; Visit Provider Specialist
DX: I87.2 Venous insufficiency (chronic) (peripheral) (principal); I48.19 Other persistent atrial fibrillation; E78.2 Mixed hyperlipidemia
CPT/HCPCS: 36415; 80053; 80061; 83735; 84443; 85027

== ENCOUNTER → 2021-05-19 09:04 | Outpatient (CLI) | payer MEDICARE, SELFPAY | PROVIDERS: Family Provider Internal Medicine; PCP Internal Medicine; Referring Provider Internal Medicine; Visit Provider Nurse Practitioner Family | DX: I87.2 Venous insufficiency (chronic) (peripheral) (principal); L97.321 Non-pressure chronic ulcer of left ankle limited to breakdown of skin; R73.03 Prediabetes; R60.0 Localized edema | CPT/HCPCS: 93922; 97597; 99204; 99213 ==

== ENCOUNTER → 2021-06-02 09:25 | Outpatient (CLI) | payer MEDICARE, SELFPAY | PROVIDERS: Family Provider Internal Medicine; PCP Internal Medicine; Referring Provider Internal Medicine; Visit Provider Nurse Practitioner Family | DX: I87.2 Venous insufficiency (chronic) (peripheral) (principal); R73.03 Prediabetes; I73.9 Peripheral vascular disease, unspecified; R60.0 Localized edema | CPT/HCPCS: 99213; 99214 ==

== ENCOUNTER 2021-07-15 10:31 | Emergency (ER) | payer MEDICARE, SELFPAY ==
[2021-07-15 10:35] VITALS: BP 133/69; PULSE 86; RESP 18; TEMP 36.7; O2SAT 95; BMI 47.8
--- NOTE | 2021-07-15 10:47 | DI.CT.S_ITS ---
PROCEDURE: CT HEAD/BRAIN WO CON INDICATIONS: Left medial rectus ocular palsy TECHNIQUE: Noncontrast 4.5 mm thick angled axial sections acquired from the foramen magnum to the vertex, with coronal and sagittal reformats. For radiation dose reduction, the following was used: automated exposure control, adjustment of mA and/or kV according to patient size. COMPARISON: [facility], MR, BRAIN W&WO CONTRAST, 12/15/2013, 10:30. [facility], CT, HEAD WITHOUT CONTRAST, 11/17/2013, 17:41. FINDINGS: Image quality: Excellent. CSF spaces: Basal cisterns are patent. No extra-axial fluid collections. The ventricles are symmetric in size and shape. Brain: No intracranial bleeds or masses. There is cerebral volume loss for age, with resultant ventricular and sulcal prominence. There are periventricular and deep white matter chronic small vessel ischemic changes. There is intracranial internal carotid artery atherosclerosis. Skull and face: Calvarium and visualized facial bones appear intact, without suspicious lesions. Sinuses: Visualized sinuses and mastoids are clear. IMPRESSION: No acute intracranial process is seen. No acute intracranial hemorrhage is seen. Note is made of age-appropriate brain parenchymal volume loss and chronic small vessel ischemic changes. If it would be helpful for clinical management decision making, please consider a dedicated brain MRI (orbits protocol, without and with contrast) for further evaluation (assuming that there is no contraindication). Dictated by: Vinny Cerrato M.D. on 07/15/2021 at 10:29 Approved by: Vinny Cerrato M.D. on 07/15/2021 at 10:32
--- NOTE | 2021-07-15 10:51 | ED_ITS ---
HPI - Neuro Symptoms/Deficit General Chief Complaint: Neuro Symptoms/Deficit Stated Complaint: left eye is not centered Time Seen by Provider: 07/15/21 10:39 Source: patient Mode of arrival: Ambulatory Limitations: no limitations History of Present Illness HPI Narrative: Patient is an 81-year-old female. Has a history of atrial fibrillation. Is on anticoagulation for this. Also has a history of migraines. Approximately 3-4 weeks ago started to develop a migraine. She states that she thought it was because it was around Merry time and she was eating lot of sugar. She she did not think much of it because it felt like 1 of her typical migraines. Approximately 4 days ago she went to her primary provider. She was placed on antibiotics for presumed sinus infection. States that that afternoon/evening she started to have problems driving because of visual disturbances. Over the next 4 days she has noticed that the symptoms worsen. She states that it is sometimes double vision sometimes it is blurry vision and sometimes it is wavy vision. She is still having a headache but it is somewhat better than what it was at its onset. On Anticoagulants: Yes (eliquis / afib) Related Data Home Medications Medication Instructions Recorded Confirmed acetaminophen 300 mg-codeine 30 mg 1 tab PO QDAYP PRN #0 12/27/16 03/23/21 tablet cholecalciferol (vitamin D3) 25 5,000 unit PO QDAY #0 12/27/16 03/23/21 mcg (1,000 unit) chewable tablet (Vitamin D3) furosemide 40 mg tablet 40 mg PO DAILY 03/09/19 03/23/21 gabapentin 100 mg capsule 100 mg PO BEDTIME 03/09/19 03/23/21 levothyroxine 137 mcg capsule 137 mcg PO DAILY 03/09/19 03/23/21 menthol 4 % topical gel (Biofreeze % TOP 03/09/19 03/23/21 (menthol)) potassium chloride 10 mEq 10 meq PO DAILY 03/09/19 03/23/21 capsule,extended release apixaban 5 mg tablet (Eliquis) 5 mg PO BID 03/23/21 03/23/21 metoprolol tartrate 75 mg tablet 75 - 150 mg PO BID tab 03/23/21 03/23/21 rosuvastatin 10 mg tablet 10 mg PO DAILY 03/23/21 03/23/21 Allergies Allergy/AdvReac Type Severity Reaction Status Date / Time corn [CORN] Allergy Mild Unverified 03/23/21 10:08 grass pollen [GRASS POLLEN] Allergy Mild Unverified 03/23/21 10:08 strawberry [STRAWBERRY] Allergy Mild STUFFY Unverified 03/23/21 10:08 NOSE, HEADACHE duloxetine [From CYMBALTA] AdvReac Unknown hallucintat Unverified 03/23/21 10:08 ions gabapentin [GABAPENTIN] AdvReac Unknown hallucinati Unverified 03/23/21 10:08 ons nortriptyline [NORTRIPTYLINE] AdvReac Unknown hallucinati Unverified 03/23/21 10:08 ons pregabalin [From LYRICA] AdvReac Unknown hallucinati Unverified 03/23/21 10:08 ons Review of Systems Constitutional Constitutional: Denies fatigue, Denies fever(s) and Reports headache(s) Eyes Eyes: Reports as per HPI and Reports system reviewed and no additional complaints, except as documented ENT Ears, Nose, Mouth, and Throat: Denies dysphagia, Denies vertigo, Denies dizziness and Reports headache(s) Cardiovascular Cardiovascular: Denies chest pain, Denies rapid heart rate and Denies dyspnea Respiratory Respiratory: Denies cough and Denies dyspnea Gastrointestinal Gastrointestinal: Denies abdominal pain, Denies dysphagia, Denies nausea and Denies vomiting Musculoskeletal Musculoskeletal: Reports system reviewed and no additional complaints, except as documented Integumentary/Breasts Skin/Breast: Reports system reviewed and no additional complaints, except as documented Neurologic Neurologic: Denies vertigo, Denies dizziness and Reports headache(s) Endocrine Endocrine: Denies fatigue Hematologic/Lymphatic On Anticoagulants: Yes (eliquis / afib) Patient History Medical History Arterial insufficiency of lower extremity Atrial fibrillation B12 deficiency Carpal tunnel syndrome on both sides Chronic allergic rhinitis Conductive hearing loss, bilateral Excessive daytime sleepiness Hypertension Hypothyroidism (acquired) Lumbar spinal stenosis 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) Mixed hyperlipidemia Morbid obesity with body mass index (BMI) of 40.0 to 49.9 Nonrheumatic mitral valve disorder, unspecified Obstructive sleep apnea of adult (~2006) Other thrombophilia Polyneuropathy in other diseases classified elsewhere Prediabetes Primary osteoarthritis involving multiple joints Sensory neuropathy Snoring (~2006) Urethral stenosis Vasomotor rhinitis Venous insufficiency (chronic) (peripheral) Surgical History Hx of bilateral cataract extraction Social History marital status: details: lauryn Linton household members: spouse lives independently: Yes caregiver/support person: No housing: house Smoking Status: Former smoker Tobacco: How many years used: 5 (1.25 pack-years; quit 07/01/1965) Smoking Status: Former smoker alcohol intake frequency: a few times a month Substance Use Type: does not use Exam Initial Vital Signs Initial Vital Signs: Vital Signs Temperature 98.1 F 07/15/21 10:35 Pulse Rate 86 07/15/21 10:35 Respiratory Rate 18 07/15/21 10:35 Blood Pressure 133/69 07/15/21 10:35 Pulse Oximetry 95 07/15/21 10:35 Const General: cooperative, comfortable and well developed HENAR Head: normal to inspection and normocephalic Face and sinus: normal facial exam Mouth: oral mucosae normal Throat: posterior oropharynx normal Eyes Pupils: PERRL Other: Patient has deviation temporally to the left eye. With covering of the right eye the left eye does come back to midline. She cannot move her left eye nasally. Consistent with a medial rectus palsy. The rest of her extraocular muscles in this I appear to be intact. Her pupils are reactive and equal. Extraocular muscles intact with right eye. Resp Effort & Inspection: normal respiratory effort Cardio Rate: regular rate Skin General: no rashes or lesions noted Neuro General: patient alert, patient awake, patient oriented x3 and moves all extremities Speech: speech normal Motor: muscle tone normal throughout Sensory Exam: no sensory deficits noted Pupils: Normal pupillary reactivity/response: bilateral Other: Except for the medial rectus muscle in the left eye the rest of her cranial nerves are intact. Extrem General: normal to inspection Psych Appearance: grossly normal Course Orders Ordered: ED Orders 07/15/21 10:47 CT head/brain wo con Stat 07/15/21 10:56 EKG-12 Lead Stat 07/15/21 11:45 MR angio head wo con Stat MR head/brain wo/w con Stat 07/15/21 12:00 Basic Metabolic Panel Stat Complete Blood Count AUTO DIFF Stat Magnesium Stat Partial Thromboplastin Time Stat Prothrombin Time INR Stat Vital Signs Vital signs: Vital Signs - 8 hr 07/15/21 10:35 07/15/21 14:47 Temperature 98.1 F Pulse Rate 86 75 Respiratory Rate 18 Blood Pressure 133/69 110/59 L Pulse Oximetry 95 97 MDM - Neuro Symptoms/Deficit Lab Data Result diagrams: 07/15/21 12:00 07/15/21 12:00 Labs: Lab Results 07/15/21 07/15/21 07/15/21 Range/Units 12:00 12:00 12:00 WBC 8.1 (4.5-11.0) X10^3/uL RBC 4.72 (4.0-5.2) X10^6/uL Hgb 15.1 (12.0-16.0) g/dL Hct 44.4 (36-46) % MCV 94.2 (80-100) fL MCH 32.1 (26-34) PG MCHC 34.1 (30-36) % RDW 14.1 (11.6-14.8) % Plt Count 271 (150-400) X10^3/uL Neut % (Auto) 72.5 (50-75) % Lymph % (Auto) 16.9 L (25-40) % Parmer % (Auto) 7.7 (3-14) % Eos % (Auto) 1.7 L (2-4) % Baso % (Auto) 1.2 (0-2) % Neut # (Auto) 5900 (6521-8808) /uL Lymph # (Auto) 1400 (1909-7849) /uL Parmer # (Auto) 600 (0-900) /uL Eos # (Auto) 100 (0-450) /uL Baso # (Auto) 100 (0-100) /uL PT 14.5 H (10.1-12.7) SECONDS INR 1.3 (0.9-1.3) APTT 39 H (26.4-36.2) SECONDS Sodium 135 L (137-145) mmol/L Potassium 4.1 (3.4-5.1) mmol/L Chloride 97 L (98-107) mmol/L Carbon Dioxide 30 (22-32) mmol/L BUN 21 H (7-17) mg/dL Creatinine 0.77 (0.52-1.04) mg/dL Estimated GFR > 60.0 (>60) mL/min BUN/Creatinine Ratio 27.3 H (6-22) Glucose 129 H (80-110) mg/dL Calcium 9.2 (8.4-10.2) mg/dL Magnesium 1.8 (1.6-2.3) mg/dL Imaging Data CT scan - head: Radiologist's Impression: [address] [address] [address] Scan Report Signed Patient: Tawny Luis MR#: [id number] : 1940 Acct:[id number] Age/Sex: 81 / F Date of Service: 07/15/21 Loc: ED Accession Number: [id number] ?? Procedure: CT head/brain wo con Ordering Provider: Charlie Heck D.O. PROCEDURE:? CT HEAD/BRAIN WO CON ? INDICATIONS:? Left medial rectus ocular palsy ? TECHNIQUE:? Noncontrast 4.5 mm thick angled axial sections acquired from the foramen magnum to the vertex, with coronal and sagittal reformats.? For radiation dose reduction, the following was used:? automated exposure control, adjustment of mA and/or kV according to patient size.? ? COMPARISON:? [facility], MR, BRAIN W&WO CONTRAST, 12/15/2013, 10:30.? [facility], CT, HEAD WITHOUT CONTRAST, 11/17/2013, 17:41. ? FINDINGS:? Image quality:? Excellent.? ? CSF spaces:? Basal cisterns are patent.? No extra-axial fluid collections.? The ventricles are symmetric in size and shape.? ? Brain:? No intracranial bleeds or masses.? There is cerebral volume loss for age, with resultant ventricular and sulcal prominence.? There are periventricular and deep white matter chronic small vessel ischemic changes.? There is intracranial internal carotid artery atherosclerosis.? ? Skull and face:? Calvarium and visualized facial bones appear intact, without suspicious lesions.? ? Sinuses:? Visualized sinuses and mastoids are clear.? IMPRESSION:? ? No acute intracranial process is seen.? ? No acute intracranial hemorrhage is seen.? ? Note is made of age-appropriate brain parenchymal volume loss and chronic small vessel ischemic changes. ? If it would be helpful for clinical management decision making, please consider a dedicated brain MRI (orbits protocol, without and with contrast)? for further evaluation (assuming that there is no contraindication).? ? ? Dictated by: Vinny Cerrato M.D. on 07/15/2021 at 10:29 ? ? Approved by: Vinny Cerrato M.D. on 07/15/2021 at 10:32 MR angio head : Radiologist's Impression: [address] [address] Magnetic Resonance Report Signed Patient: Tawny Luis MR#: [id number] : 1940 Acct:[id number] Age/Sex: 81 / F Date of Service: 07/15/21 Loc: ED Accession Number: [id number] ?? Procedure: MR angio head wo con Ordering Provider: Charlie Heck D.O. PROCEDURE:? MR ANGIO HEAD WO CON ? INDICATIONS:? Cranial nerve palsy ? TECHNIQUE:? Noncontrast axial 3-D [id number] MR angiogram, with 3-dimensional maximum intensity projection (MIP) reformats of the internal carotid arteries and posterior circulation then performed.? ? COMPARISON:? [facility], , ANGIOGRAM HEAD WITHOUT CONTRAS, 10/03/2010, 10:25. ? FINDINGS:? Image quality:? Excellent.? ? Anterior circulation:? Intracranial internal carotid arteries demonstrate normal size and intraluminal flow signal.? The flow within the paired anterior cerebral arteries is normal and symmetric.? The flow within the middle cerebral arteries is normal and symmetric.? The anterior communicating artery is seen.? No stenoses, occlusions, or aneurysms.? ? Posterior circulation:? Visualized portions of the vertebral arteries demonstrate normal caliber, and join to form a normal appearing basilar artery.? The flow within the posterior cerebral arteries is normal and symmetric.? No stenoses, occlusions, or aneurysms.? ? IMPRESSION:? ? No areas of hemodynamically significant stenosis, vascular occlusion or aneurysmal dilation within the anterior or posterior circulation. ? Dictated by: Missy Preston M.D. on 07/15/2021 at 13:58 ? ? Approved by: Missy Preston M.D. on 07/15/2021 at 14:02?? MRI: Radiologist's Impression: [address] [address] Magnetic Resonance Report Signed Patient: Tawny Luis MR#: [id number] : 1940 Acct:[id number] Age/Sex: 81 / F Date of Service: 07/15/21 Loc: ED Accession Number: [id number] ?? Procedure: MR head/brain wo/w con Ordering Provider: Charlie Heck D.O. PROCEDURE:? MR HEAD/BRAIN WO/W CON ? INDICATIONS:? Cranial nerve palsy, please include orbit protocol ? TECHNIQUE:? Noncontrast axial T1 spin echo, axial T2 fast spin echo, sagittal and axial FLAIR, coronal T2 fast spin echo, axial gradient echo, axial diffusion and ADC through the brain.? After the administration of contrast, axial and coronal T1 spin echo with fat saturation through the brain.? ? COMPARISON:? [facility], CT, CT HEAD/BRAIN WO CON, 07/15/2021, 10:52.? [facility], MR, MR ANGIO HEAD WO CON, 07/15/2021, 12:02.? [facility], MR, BRAIN W&WO CONTRAST, 12/15/2013, 10:30. ? FINDINGS:? Image quality:? Excellent.? ? CSF spaces:? Basal cisterns are patent.? No extra-axial fluid collections.? Ventricles are normal in size and shape.? ? Brain:? No midline shift.? No intracranial bleeds or masses.? No abnormal intracranial enhancement.? There is cerebral volume loss for age.? There is periventricular white matter chronic small vessel ischemic change.? The brainstem appears normal.? Diffusion-weighted images demonstrate no acute ischemic insults.? No chronic i schemic insults.? Normal intravascular flow voids are present.? ? Visualized cranial nerves demonstrate no areas of abnormal enhancement, signal or mass lesion. ? Skull and face:? Calvarial marrow is normal in signal.? Orbits appear normal.? ? Sinuses:? Sinuses and mastoids appear clear.? ? IMPRESSION:? 1.? No acute intracranial process.? 2.? Mild atrophy and chronic microvascular ischemic changes.? 3.? No visualized abnormality with the cranial nerves. ? ? Dictated by: Missy Preston M.D. on 07/15/2021 at 13:45 ? ? Approved by: Missy Preston M.D. on 07/15/2021 at 13:57? ECG Data Attestation: I personally reviewed and interpreted this ECG as follows: Interpretation: Atrial fibrillation Ventricular rate is 71 Normal QRS Normal QTC Left axis deviation No ST T wave changes MDM Narrative Medical decision making narrative: Patient has what appears to be an isolated medial rectus palsy of her left eye. She is able to overcome this when you cover her right eye however she cannot medially deviate. Her extraocular muscles on the right eye are unremarkable. She did have a headache since [place] several weeks ago but states this has greatly improved. There is no signs of infection. No trauma. She has no specific vision changes except that she is having some double vision because of the ocular muscle palsy. MRI is unremarkable. Head CT is unremarkable. Labs unremarkable. Have patient contact Ophthalmology on Saturday for a follow-up. She is otherwise asymptomatic. She was given return precautions and follow-up instructions. She expressed understanding and agreement. 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 On Saturday morning contact Dr. Ansari for a follow-up. You can use a patch over the left eye like we discussed. Return to the emergency department for any new or worsening symptoms. Prescriptions: No Action acetaminophen-codeine 30 MG/300 MG tablet 1 tab PO QDAYP PRNQty: 0 0RF cholecalciferol (vitamin D3) [Vitamin D3] 1,000 unit tablet,chewable 5,000 unit PO QDAY Qty: 0 0RF levothyroxine 137 mcg capsule 137 mcg PO DAILY 0RF furosemide 40 mg tablet 40 mg PO DAILY 0RF potassium chloride 10 mEq capsule, extended release 10 meq PO DAILY 0RF gabapentin 100 mg capsule 100 mg PO BEDTIME 0RF Biofreeze (menthol) 4 % gel TOP 0RF metoprolol tartrate 75 mg tablet 75 - 150 mg PO BID 0RF Rx Instructions: 2 tabs AM and 1 tab PM Eliquis 5 mg tablet 5 mg PO BID 0RF rosuvastatin 10 mg tablet 10 mg PO DAILY 0RF Referrals: Cal Ansari MD [Physician] - Mehul Pérez MD [Primary Care Provider] -
--- NOTE | 2021-07-15 11:45 | DI.MRI.S_ITS ---
PROCEDURE: MR HEAD/BRAIN WO/W CON INDICATIONS: Cranial nerve palsy, please include orbit protocol TECHNIQUE: Noncontrast axial T1 spin echo, axial T2 fast spin echo, sagittal and axial FLAIR, coronal T2 fast spin echo, axial gradient echo, axial diffusion and ADC through the brain. After the administration of contrast, axial and coronal T1 spin echo with fat saturation through the brain. COMPARISON: [facility], CT, CT HEAD/BRAIN WO CON, 07/15/2021, 10:52. [facility], MR, MR ANGIO HEAD WO CON, 07/15/2021, 12:02. [facility], MR, BRAIN W&WO CONTRAST, 12/15/2013, 10:30. FINDINGS: Image quality: Excellent. CSF spaces: Basal cisterns are patent. No extra-axial fluid collections. Ventricles are normal in size and shape. Brain: No midline shift. No intracranial bleeds or masses. No abnormal intracranial enhancement. There is cerebral volume loss for age. There is periventricular white matter chronic small vessel ischemic change. The brainstem appears normal. Diffusion-weighted images demonstrate no acute ischemic insults. No chronic ischemic insults. Normal intravascular flow voids are present. Visualized cranial nerves demonstrate no areas of abnormal enhancement, signal or mass lesion. Skull and face: Calvarial marrow is normal in signal. Orbits appear normal. Sinuses: Sinuses and mastoids appear clear. IMPRESSION: 1. No acute intracranial process. 2. Mild atrophy and chronic microvascular ischemic changes. 3. No visualized abnormality with the cranial nerves. Dictated by: Missy Preston M.D. on 07/15/2021 at 13:45 Approved by: Missy Preston M.D. on 07/15/2021 at 13:57
--- NOTE | 2021-07-15 11:45 | DI.MRI.S_ITS ---
PROCEDURE: MR ANGIO HEAD WO CON INDICATIONS: Cranial nerve palsy TECHNIQUE: Noncontrast axial 3-D [id number] MR angiogram, with 3-dimensional maximum intensity projection (MIP) reformats of the internal carotid arteries and posterior circulation then performed. COMPARISON: [facility], , ANGIOGRAM HEAD WITHOUT CONTRAS, 10/03/2010, 10:25. FINDINGS: Image quality: Excellent. Anterior circulation: Intracranial internal carotid arteries demonstrate normal size and intraluminal flow signal. The flow within the paired anterior cerebral arteries is normal and symmetric. The flow within the middle cerebral arteries is normal and symmetric. The anterior communicating artery is seen. No stenoses, occlusions, or aneurysms. Posterior circulation: Visualized portions of the vertebral arteries demonstrate normal caliber, and join to form a normal appearing basilar artery. The flow within the posterior cerebral arteries is normal and symmetric. No stenoses, occlusions, or aneurysms. IMPRESSION: No areas of hemodynamically significant stenosis, vascular occlusion or aneurysmal dilation within the anterior or posterior circulation. Dictated by: Missy Preston M.D. on 07/15/2021 at 13:58 Approved by: Missy Preston M.D. on 07/15/2021 at 14:02
[2021-07-15 12:41] LABS: Add Manual Diff / Slide Review NO; Basophils Absolute Auto 100 /uL (0-100); Basophils Percent Auto 1.2 % (0-2); Eosinophils Absolute Auto 100 /uL (0-450); Eosinophils Percent Auto 1.7 % (2-4); Hematocrit 44.4 % (36-46); Hemoglobin 15.1 g/dL (12.0-16.0); Lymphocytes Absolute Auto 1400 /uL (1100-4500); Lymphocytes Percent Auto 16.9 % (25-40); Mean Corpuscular HGB Conc 34.1 % (30-36); Mean Corpuscular Hemoglobin 32.1 PG (26-34); Mean Corpuscular Volume 94.2 fL (80-100); Monocytes Absolute Auto 600 /uL (0-900); Monocytes Percent Auto 7.7 % (3-14); Neutrophils Absolute Auto 5900 /uL (1500-7000); Neutrophils Percent Auto 72.5 % (50-75); Platelet Count 271 X10^3/uL (150-400); Red Blood Cell Count 4.72 X10^6/uL (4.0-5.2); Red Cell Distribution Width 14.1 % (11.6-14.8); White Blood Cell Count 8.1 X10^3/uL (4.5-11.0)
[2021-07-15 12:53] LABS: INR 1.3 (0.9-1.3); Prothrombin Time 14.5 SECONDS (10.1-12.7)
[2021-07-15 12:55] LABS: PTT Partial Thromboplastin Tim 39 SECONDS (26.4-36.2)
[2021-07-15 12:58] LABS: BUN Creatinine Ratio 27.3 (6-22); Blood Urea Nitrogen 21 mg/dL (7-17); Calcium 9.2 mg/dL (8.4-10.2); Carbon Dioxide 30 mmol/L (22-32); Chloride 97 mmol/L (98-107); Estimated Glomerular Filt Rate > 60.0 mL/min (>60); Glucose 129 mg/dL (80-110); HEMOLYSIS < 15 (0-50); Magnesium 1.8 mg/dL (1.6-2.3); Potassium 4.1 mmol/L (3.4-5.1); Sodium 135 mmol/L (137-145)
--- NOTE | 2021-07-15 13:02 | PC.NURSE ---
Patient's left eye is deviated. She cannot move her left eye back. Her pupils are reactive and equal. +3mm Extraocular muscles intact with right eye.
--- NOTE | 2021-07-15 13:06 | PC.NURSE ---
left eye deviated. partially closed. reports tunnel vision. MD performed more detailed exam. pt is currently in MRI
--- NOTE | 2021-07-15 13:52 | PC.NURSE ---
construction equipment technician reported seizure like activity while she was finishing up her MRI. he states that she was confused. upon arrival to ER , pt was coming around. [id number] upon gettiing into her room. assisted to BSC. pt was able to stand and walk to the BSC with one person assist.
[2021-07-15 14:47] VITALS: BP 110/59; PULSE 75; O2SAT 97
== END 2021-07-15 14:58 | disposition home or self-care (01) ==
PROVIDERS: Emergency Provider Emergency Medicine; Family Provider Internal Medicine; PCP Internal Medicine
DX: H49.02 Third [oculomotor] nerve palsy, left eye (principal); I48.91 Unspecified atrial fibrillation; Z79.01 Long term (current) use of anticoagulants; Z87.891 Personal history of nicotine dependence
CPT/HCPCS: 36415; 70450; 70544; 70553; 80048; 83735; 85025; 85610; 85730; 93005; 93010; 99284

== ENCOUNTER → 2021-07-21 12:18 | Outpatient (CLI) | payer MEDICARE, SELFPAY ==
[2021-07-21 12:58] LABS: Erythrocyte Sedimentation Rate 7 MM/HR (0-20)
[2021-07-21 13:39] LABS: C-Reactive Protein Quant < 0.5 mg/dL (<1.0)
[2021-07-21 14:07] LABS: Thyroid Stimulating Hormone 1.05 uIU/mL (0.47-4.68)
[2021-07-30 09:36] LABS: Acetylcholine Blocking AB 23 % (0-25); Acetylcholine Receptor Bind AB <0.03 nmol/L (0.00-0.24); MuSK Antibodies <1.0 U/mL (.)
[2021-07-30 10:07] LABS: MuSK Antibodies <1.0 U/mL (.)
== END ==
PROVIDERS: Family Provider Internal Medicine; PCP Internal Medicine; Referring Provider Ophthalmology; Visit Provider Ophthalmology
DX: H49.02 Third [oculomotor] nerve palsy, left eye (principal)
CPT/HCPCS: 36415; 83519; 84443; 85651; 86140; 86255

== ENCOUNTER → 2021-10-04 10:50 | Outpatient (CLI) | payer MEDICARE, SELFPAY ==
--- NOTE | 2021-10-04 10:56 | DI.MG.S_ITS ---
BILATERAL DIGITAL SCREENING MAMMOGRAM 3D/2D WITH CAD: 10/04/2021 CLINICAL: Routine screening. Comparison is made to exams dated: 07/11/2020 mammogram, 05/21/2019 mammogram, and 03/07/2018 mammogram - [facility]. There are scattered fibroglandular elements in both breasts. Current study was also evaluated with a Computer Aided Detection (CAD) system. There are benign calcifications in both breasts. No significant masses, calcifications, or other findings are seen in either breast. There has been no significant interval change. IMPRESSION: BENIGN There is no mammographic evidence of malignancy. A 1 year screening mammogram is recommended. This exam was interpreted at Station ID: [id number]. NOTE: For mammograms, a report in lay terms will be sent to the patient. Approximately 15% of breast malignancies will not be visualized mammographically. In the management of a palpable breast mass, a negative mammogram must not discourage biopsy of a clinically suspicious lesion. Electronically Signed By: Fito Rosales M.D., jr/magdalena:10/04/2021 11:40:07 letter sent: Normal Exam ACR BI-RADS Category 2: Benign Finding(s) 3342F
== END ==
PROVIDERS: Family Provider Internal Medicine; PCP Internal Medicine; Referring Provider Internal Medicine; Visit Provider Internal Medicine
DX: Z12.31 Encounter for screening mammogram for malignant neoplasm of breast (principal)
CPT/HCPCS: 77063; 77067

== ENCOUNTER → 2021-12-12 08:31 | Outpatient (CLI) | payer MEDICARE, SELFPAY ==
[2021-12-12 10:08] LABS: Alanine Aminotransferase 20 IU/L (<35); Albumin 3.8 g/dL (3.5-5.0); Albumin Globulin Ratio 1.3 (1.0-2.8); Alkaline Phosphatase 103 U/L (38-126); Aspartate Aminotransferase 23 IU/L (14-36); BUN Creatinine Ratio 31.2 (6-22); Bilirubin Total 0.9 mg/dL (0.2-1.3); Blood Urea Nitrogen 24 mg/dL (7-17); Carbon Dioxide 27 mmol/L (22-32); Chloride 100 mmol/L (98-107); Estimated Glomerular Filt Rate > 60 mL/min (>60); Globulin 2.9 g/dL (1.7-4.1); Glucose 120 mg/dL (80-110); HEMOLYSIS < 15 (0-50); Magnesium 1.8 mg/dL (1.6-2.3); Potassium 4.6 mmol/L (3.4-5.1); Sodium 135 mmol/L (137-145); Total Protein 6.7 g/dL (6.3-8.2)
[2021-12-14 07:47] LABS: Cholesterol, Total 132 mg/dL (100-199); HDL-Cholesterol 60 mg/dL (>39); LDL Particle 873 nmol/L (<1000); LDL Size 21.2 nm (>20.5); LDL-Cholsterol 55 mg/dL (0-99); LP-IR Score 47 (<=45); Small LDL- Particle 459 nmol/L (<=527); Triglycerides 93 mg/dL (0-149)
== END ==
PROVIDERS: Family Provider Internal Medicine; PCP Internal Medicine; Referring Provider Specialist; Visit Provider Specialist
DX: I48.19 Other persistent atrial fibrillation (principal); E78.2 Mixed hyperlipidemia
CPT/HCPCS: 36415; 80053; 80061; 83704; 83735

== ENCOUNTER → 2022-04-30 11:38 | Outpatient (CLI) | payer MEDICARE, SELFPAY ==
--- NOTE | 2022-04-30 11:39 | DI.RAD.S_ITS ---
PROCEDURE: XR HIP W PEL IF DONE RT 2V INDICATIONS: right hip pain TECHNIQUE: AP pelvis with lateral view(s) of the right hip(s). COMPARISON: [facility], CR, XR PELVIS W LATERAL HIP RT, 08/15/2016, 14:45. CR, L-SPINE 2-3 VIEWS, 01/31/2009, 10:06. FINDINGS: Bones: No fractures or dislocations. Pelvic ring appears intact. No suspicious bony lesions. There is severe right hip joint degeneration with joint space narrowing, periarticular osteophytes and subchondral cyst formation. Moderate left hip joint degeneration is noted. Mild sacroiliac joint degeneration is bilaterally. Severe degenerative disc disease at L5-S1. Soft tissues: The visualized bowel gas pattern is normal. No suspicious soft tissue calcifications. IMPRESSION: 1. Severe osteoarthritis of the right hip and moderate osteoarthritis of the left hip. Dictated by: Karlo Hayden M.D. on 04/30/2022 at 13:22 Approved by: Karlo Hayden M.D. on 04/30/2022 at 13:23
== END ==
PROVIDERS: Family Provider Internal Medicine; PCP Internal Medicine; Referring Provider Internal Medicine; Visit Provider Internal Medicine
DX: M16.0 Bilateral primary osteoarthritis of hip (principal)
CPT/HCPCS: 73502

== ENCOUNTER → 2022-07-19 15:32 | Outpatient (CLI) | payer MEDICARE, SELFPAY ==
[2022-07-19 18:03] LABS: Hemoglobin A1C% w Est Avg Glu 6.2 % (4.0-6.0)
[2022-07-19 19:21] LABS: Alanine Aminotransferase 19 IU/L (<35); Alkaline Phosphatase 110 U/L (38-126); Aspartate Aminotransferase 24 IU/L (14-36); BUN Creatinine Ratio 27.5 (6-22); Bilirubin Total 0.9 mg/dL (0.2-1.3); Blood Urea Nitrogen 22 mg/dL (7-17); Calcium 9.3 mg/dL (8.4-10.2); Carbon Dioxide 24 mmol/L (22-32); Chloride 99 mmol/L (98-107); Cholesterol 138 mg/dL (140-199); Estimated Glomerular Filt Rate > 60 mL/min (>60); Glucose 99 mg/dL (80-110); HDL Cholesterol 58 mg/dL (40-60); HEMOLYSIS < 15 (0-50); LDL Cholesterol Calculated 55 mg/dL (<100); Magnesium 1.9 mg/dL (1.6-2.3); Potassium 4.5 mmol/L (3.4-5.1); Sodium 136 mmol/L (137-145); Triglycerides 123 mg/dL (35-150)
[2022-07-19 19:44] LABS: TSH w/ Reflex to FT4 0.89 uIU/mL (0.47-4.68)
[2022-07-19 20:11] LABS: Vitamin B12 910 pg/mL (239-931)
[2022-07-20 17:16] LABS: Albumin 4.2 g/dL (3.5-5.0); Albumin Globulin Ratio 1.5 (1.0-2.8); Globulin 2.8 g/dL (1.7-4.1)
== END ==
PROVIDERS: Family Provider Internal Medicine; PCP Internal Medicine; Referring Provider Specialist; Visit Provider Specialist
DX: R73.01 Impaired fasting glucose (principal); I48.20 Chronic atrial fibrillation, unspecified; E78.2 Mixed hyperlipidemia; E03.9 Hypothyroidism, unspecified; E53.8 Deficiency of other specified B group vitamins
CPT/HCPCS: 36415; 80053; 80061; 82607; 83036; 83735; 84443

== ENCOUNTER → 2022-10-10 13:44 | Outpatient (CLI) | payer MEDICARE, SELFPAY | PROVIDERS: Family Provider Internal Medicine; PCP Internal Medicine; Referring Provider Internal Medicine; Visit Provider Internal Medicine | DX: M10.9 Gout, unspecified (principal) | CPT/HCPCS: 36415; 84550 ==

== ENCOUNTER → 2023-01-23 11:17 | Outpatient (CLI) | payer MEDICARE, SELFPAY ==
[2023-01-23 12:28] LABS: BUN Creatinine Ratio 22.7 (6-22); Blood Urea Nitrogen 15 mg/dL (7-17); Calcium 8.9 mg/dL (8.4-10.2); Carbon Dioxide 32 mmol/L (22-32); Chloride 98 mmol/L (98-107); Estimated Glomerular Filt Rate > 60 mL/min (>60); Glucose 105 mg/dL (80-110); HEMOLYSIS < 15 (0-50); Potassium 4.8 mmol/L (3.4-5.1); Sodium 134 mmol/L (137-145)
[2023-01-23 12:58] LABS: TSH w/ Reflex to FT4 0.86 uIU/mL (0.47-4.68)
[2023-01-24 07:43] LABS: Labcorp Hemoglobin (Hb) A1c 5.8 % (4.8-5.6)
== END ==
PROVIDERS: Family Provider Internal Medicine; PCP Internal Medicine; Referring Provider Internal Medicine; Visit Provider Internal Medicine
DX: E03.9 Hypothyroidism, unspecified; R73.01 Impaired fasting glucose
CPT/HCPCS: 36415; 80048; 83036; 84443

== ENCOUNTER → 2023-03-27 08:50 | Outpatient (CLI) | payer MEDICARE, SELFPAY ==
[2023-03-27 09:43] LABS: Alanine Aminotransferase 19 IU/L (<35); Albumin Globulin Ratio 1.5 (1.0-2.8); Alkaline Phosphatase 107 U/L (38-126); Aspartate Aminotransferase 22 IU/L (14-36); BUN Creatinine Ratio 20.5 (6-22); Bilirubin Total 1.1 mg/dL (0.2-1.3); Blood Urea Nitrogen 15 mg/dL (7-17); Calcium 9.6 mg/dL (8.4-10.2); Carbon Dioxide 28 mmol/L (22-32); Chloride 100 mmol/L (98-107); Estimated Glomerular Filt Rate > 60 mL/min (>60); Globulin 2.7 g/dL (1.7-4.1); Glucose 109 mg/dL (80-110); HEMOLYSIS < 15 (0-50); Magnesium 1.7 mg/dL (1.6-2.3); Potassium 4.5 mmol/L (3.4-5.1); Sodium 136 mmol/L (137-145); Total Protein 6.7 g/dL (6.3-8.2)
[2023-03-29 08:36] LABS: Cholesterol, Total 120 mg/dL (100-199); HDL-Cholesterol 56 mg/dL (>39); LDL Particle 557 nmol/L (<1000); LDL Size 20.2 nm (>20.5); LDL-Cholsterol 48 mg/dL (0-99); LP-IR Score 54 (<=45); Small LDL- Particle 370 nmol/L (<=527); Triglycerides 80 mg/dL (0-149)
== END ==
PROVIDERS: Family Provider Internal Medicine; PCP Internal Medicine; Referring Provider Specialist; Visit Provider Specialist
DX: I48.20 Chronic atrial fibrillation, unspecified (principal); E78.2 Mixed hyperlipidemia
CPT/HCPCS: 36415; 80053; 80061; 83704; 83735

== ENCOUNTER 2023-10-15 13:32 | Emergency (ER) | payer MEDICARE, SELFPAY ==
[2023-10-15 13:40] VITALS: BP 124/78; PULSE 75; RESP 18; TEMP 36.8; O2SAT 98; BMI 43.0
--- NOTE | 2023-10-15 13:52 | DI.US.S_ITS ---
PROCEDURE: US PERIPH VENOUS LOW EXTREM LT INDICATIONS: LOWER LEG WOUND TECHNIQUE: Real-time imaging, as well as color and pulse Doppler interrogation, were performed of the lower extremity deep veins from the inguinal ligament to the popliteal fossa, with documentation of the visualized calf veins. COMPARISON: None. FINDINGS: The common femoral, femoral, popliteal, and the visualized calf veins are normally compressible, and free of intraluminal thrombus. Color and pulse Doppler demonstrate normal phasic intraluminal flow. There is normal augmentation response to distal compression maneuver. Of note, below the knee veins are not well seen secondary to edema. IMPRESSION: No findings of lower extremity deep venous thrombosis. Of note, below the knee veins are not well seen secondary to edema. Dictated by: Jayce Powell M.D. on 10/15/2023 at 14:42 Approved by: Jayce Powell M.D. on 10/15/2023 at 14:42
--- NOTE | 2023-10-15 14:36 | ED.SKABFB ---
HPI - Skin/Abscess/Foreign Bdy <Maria De Jesus Deutsch PA-C - Last Filed: 10/15/23 16:34> General Chief complaint: Skin/Abscess/Foreign Body Stated complaint: wound on L leg, sent by pcp Time Seen by Provider: 10/15/23 14:14 History of Present Illness HPI narrative: Patient is a 83-year-old female with chronic conditions of impaired fasting glucose, diastolic CHF, HTN, atrial fibrillation for which she takes Eliquis, DAVIS, HLD presenting for evaluation of the concern or infection of her left lower extremity. She states that 4 days ago she felt up the stairs and subsequently sustained a hematoma to her left lower extremity. She denies any chest pain, shortness for breath or fever. She denies any chills. She states that she has neuropathy unchanged in both of her legs related to chronic back pain. She states that she has recently healed from wound under the care of the wound care clinic in this extremity. She has noticed increased swelling in her left lower extremity and has a tingling sensation. She denies any increased swelling in her right lower extremity. She denies any pain inside of her calf. Her last tetanus was in 2022. Related Data Home Medications Medication Instructions Recorded Confirmed apixaban 5 mg tablet (Eliquis) 5 mg PO BID 03/23/21 08/07/23 rosuvastatin 10 mg tablet 10 mg PO DAILY 03/23/21 08/07/23 cholecalciferol (vitamin D3) 25 5,000 unit PO QDAY ##0 10/16/21 08/07/23 mcg (1,000 unit) chewable tablet (Vitamin D3) multivitamin 1 tab PO DAILY 10/16/21 08/07/23 potassium chloride 10 mEq 10 meq PO BID 01/22/22 08/07/23 tablet,extended release menthol 4 % topical gel (Biofreeze 1 applic topical DAILY PRN right 07/19/22 08/07/23 (menthol)) knee and leg pain cyanocobalamin (vitamin B-12) 1,000 mcg PO DAILY 08/07/23 08/07/23 1,000 mcg capsule furosemide 20 mg tablet 10 mg PO DAILY 08/07/23 08/07/23 ketoconazole 2 % shampoo 1 applic topical 2XW 08/07/23 08/07/23 ketoconazole 2 % topical cream applic topical DAILY 08/07/23 08/07/23 magnesium 600 mg PO DAILY 08/07/23 08/07/23 metoprolol tartrate 50 mg tablet 50 mg PO .COMPLEX 08/07/23 08/07/23 Previous Rx's Medication Instructions Recorded levothyroxine 137 mcg tablet 137 mcg PO DAILY #90 tabs 04/02/23 duloxetine 30 mg capsule,delayed See Rx Instructions .Route 04/29/23 release .COMPLEX #90 caps semaglutide 14 mg tablet (Rybelsus) 14 mg PO DAILY #90 tabs 08/07/23 acetaminophen 300 mg-codeine 30 mg 2 tab PO QDAYP PRN pain #60 tabs 09/26/23 tablet cephalexin 500 mg capsule 500 mg PO QID 7 days #28 caps 10/15/23 Allergies Allergy/AdvReac Type Severity Reaction Status Date / Time grass pollen [GRASS POLLEN] Allergy Mild Verified 08/07/23 07:35 strawberry [STRAWBERRY] Allergy Mild STUFFY Verified 08/07/23 07:35 NOSE, HEADACHE duloxetine [From CYMBALTA] AdvReac Unknown hallucintat Verified 08/07/23 07:35 ions gabapentin [GABAPENTIN] AdvReac Unknown hallucinati Verified 08/07/23 07:35 ons nortriptyline [NORTRIPTYLINE] AdvReac Unknown hallucinati Verified 08/07/23 07:35 ons pregabalin [From LYRICA] AdvReac Unknown hallucinati Verified 08/07/23 07:35 ons Review of Systems <Maria De Jesus Deutsch PA-C - Last Filed: 10/15/23 16:34> Review of Systems Narrative: see HPI Patient History <Maria De Jesus Deutsch PA-C - Last Filed: 10/15/23 16:34> Medical History Gout Do not resuscitate Stasis dermatitis Right rotator cuff tendonitis Impaired fasting glucose Diastolic CHF, chronic Acquired hypothyroidism Essential hypertension Chronic atrial fibrillation Eczematous dermatitis Arthritis of right acromioclavicular joint Ocular palsy of left eye Urinary incontinence in female 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 (~12/12/20) B12 deficiency Conductive hearing loss, bilateral Vasomotor rhinitis Chronic allergic rhinitis Primary osteoarthritis involving multiple joints Polyneuropathy in other diseases classified elsewhere Venous insufficiency (chronic) (peripheral) Mixed hyperlipidemia Nonrheumatic mitral valve disorder, unspecified Other thrombophilia Morbid obesity with body mass index (BMI) of 40.0 to 49.9 Urethral stenosis Carpal tunnel syndrome on both sides Lumbar spinal stenosis Sensory neuropathy Hypothyroidism (acquired) Hypertension Excessive daytime sleepiness Obstructive sleep apnea of adult (~2006) Snoring (~2006) Surgical History Hx of bilateral cataract extraction Social History marital status: details: to [place] household members: spouse lives independently: Yes caregiver/support person: No housing: house Smoking Status: Former smoker Tobacco: How many years used: 5 (1.25 pack-years; quit 07/01/1965) Smoking Status: Former smoker alcohol intake frequency: a few times a month Substance Use Type: does not use Exam <Maria De Jesus Deutsch PA-C - Last Filed: 10/15/23 16:34> Initial Vital Signs Initial Vital Signs: Vital Signs Temperature 98.2 F 10/15/23 13:40 Pulse Rate 75 10/15/23 13:40 Respiratory Rate 18 10/15/23 13:40 Blood Pressure 124/78 10/15/23 13:40 Pulse Oximetry 98 10/15/23 13:40 Oxygen Delivery Method Room Air 10/15/23 13:40 GENERAL: 83 year old patient appears stated age. Well-developed patient, in no acute distress. HEAD: Atraumatic. Normocephalic. EYES: Pupils equal round and reactive. Extraocular motions intact. No scleral icterus. No injection or drainage. NECK: Trachea midline. Non tender. CARDIOVASCULAR: Regular rate and rhythm without murmurs, gallops, or rubs. RESPIRATORY: Clear to auscultation. Breath sounds equal bilaterally. No wheezes, rales, or rhonchi. EXTREMITIES: Increased 1+ pitting edema in left lower extremity, 6 cm hematoma present over left anterior lower extremity, no active bleeding present, nontender to palpation of patient's proximal tib fib or distal medial or lateral malleolus. Appropriate color and warmth to left foot, no fluctuance or induration palpated, there is some bruising around hematoma with 2-3 1 cm yellow blebs consistent with swelling. No evidence of exudate, posterior tibialis pulse 1 +in left ankle. NEURO: AOx3. SKIN: No rash or erythema of visible areas <Martínez West MD - Last Filed: 10/20/23 08:28> Initial Vital Signs Initial Vital Signs: Vital Signs Temperature 98.2 F 10/15/23 13:40 Pulse Rate 75 10/15/23 13:40 Respiratory Rate 18 10/15/23 13:40 Blood Pressure 124/78 10/15/23 13:40 Pulse Oximetry 98 10/15/23 13:40 Oxygen Delivery Method Room Air 10/15/23 13:40 Course <Maria De Jesus Deutsch PA-C - Last Filed: 10/15/23 16:34> Orders Ordered: ED Orders 10/15/23 13:52 US periph venous low extrem lt Stat Vital Signs Vital signs: Vital Signs - 8 hr 10/15/23 13:40 10/15/23 15:53 Temperature 98.2 F Pulse Rate 75 76 Respiratory Rate 18 16 Blood Pressure 124/78 125/78 Pulse Oximetry 98 96 Oxygen Delivery Method Room Air Room Air <Martínez West MD - Last Filed: 10/20/23 08:28> Orders Ordered: ED Orders 10/15/23 13:52 US periph venous low extrem lt Stat Vital Signs Vital signs: Vital Signs - 8 hr 10/15/23 13:40 10/15/23 15:53 Temperature 98.2 F Pulse Rate 75 76 Respiratory Rate 18 16 Blood Pressure 124/78 125/78 Pulse Oximetry 98 96 Oxygen Delivery Method Room Air Room Air MDM - Skin/Abscess/Foreign Bdy <Maria De Jesus Deutsch PA-C - Last Filed: 10/15/23 16:34> Imaging Data US Eulogio LLE: Radiologist's Impression: PROCEDURE: US PERIPH VENOUS LOW EXTREM LT INDICATIONS: LOWER LEG WOUND TECHNIQUE: Real-time imaging, as well as color and pulse Doppler interrogation, were performed of the lower extremity deep veins from the inguinal ligament to the popliteal fossa, with documentation of the visualized calf veins. COMPARISON: None. FINDINGS: The common femoral, femoral, popliteal, and the visualized calf veins are normally compressible, and free of intraluminal thrombus. Color and pulse Doppler demonstrate normal phasic intraluminal flow. There is normal augmentation response to distal compression maneuver. Of note, below the knee veins are not well seen secondary to edema. IMPRESSION: No findings of lower extremity deep venous thrombosis. Of note, below the knee veins are not well seen secondary to edema. Dictated by: Jayce Powell M.D. on 10/15/2023 at 14:42 Approved by: Jayce Powell M.D. on 10/15/2023 at 14:42 [facility] Narrative Medical decision making narrative: Patient is an 83-year-old female with chronic conditions of atrial fibrillation on Eliquis anticoagulation, HTN, prediabetes, HLD, diastolic CHF presenting for evaluation of a wound of her left lower extremity occurring 4 days ago. Her tetanus is up-to-date in 2022. She is noticed some continued swelling as well as some warmth around the wound. Due to her history of a need for wound care in the past, she wanted to make sure she received treatment if there was any evidence of infection. Physical exam is reassuring. Presence of hematoma confirmed with bruising around the wound and some warmth present, but no evidence of fluctuance or induration or active bleeding present. Multiple etiologies for patient's symptoms considered including, but not limited to: Cellulitis, sepsis, DVT, skin tear, CHF exacerbation Discussed results of ultrasound imaging with patient that there was no evidence of a clot noted on imaging. Discussed possibility of continuing with blood work to rule out broader infection. Patient's exam was reassuring and with presence of hematoma with some bruising as well as increased warmth around the wound site. Her vital signs are within normal limits, denies any feeling of malaise, fever or body aches which lowers suspicion for sepsis. Her swelling is one-sided leading me to a low suspicion of CHF exacerbation. Discussed pros and cons of blood work to further rule out concern for systemic infection. Patient states she would prefer to go home and monitor symptoms and follow up with her PCP. Advised patient to keep her legs elevated and follow up with her PCP this week to evaluate healing process and discuss whether she should continue follow up with wound care based upon her history. I have also put in a prescription for cephalexin to help reduce her risk of secondary infection. She is agreeable with this plan of care and feels safe to be discharged home. Findings and discharge diagnosis discussed with patient/family followed by verbalization of understanding Return precautions discussed with patient/family whom verbalize understanding of diagnosis and plan Discharge Plan Departure Patient Disposition: Home Clinical Impression: Leg wound, left Qualifiers: Encounter type: initial encounter Qualified Code(s): S81.802A - Unspecified open wound, left lower leg, initial encounter Activity Restrictions/Additional Instructions: *You have been diagnosed with a wound of your left lower leg. Thankfully, ultrasound today did not demonstrate evidence of clot. To care for your wound, I recommend daily wound dressing changes, taking an antibiotic to discourage infection. I have sent an antibiotic to your pharmacy. I recommend that you continue close follow up with your primary care provider for continued evaluation of wound care. Please return to the emergency department if you should have any fever, confusion, increased pain, body aches or chills or other concerning signs or symptoms. *What to do: *Please continue to take your regular medications as directed. [x ] New medication prescriptions sent to your pharmacy: Cephalexin sent to [facility] not [facility]. [ ] New medication written as a paper prescription [ ] No new medications given *Please follow up with your primary care provider in 2-3 days, call for an appointment. Let them know you were seen in the Emergency Department and that we ask that you be seen in follow up. We will electronically transmit a record of today's note if your PCP is in our system *Return to Emergency Department if you should have any new, worsening or concerning symptoms, such as fever greater than 101 F, shaking chills, worsening pain, persistent vomiting or other bothersome symptoms Prescriptions: New cephalexin 500 mg capsule 500 mg PO QID 7 Days Qty: 28 0RF No Action cholecalciferol (vitamin D3) [Vitamin D3] 25 mcg (1,000 unit) tablet,chewable 5,000 unit PO QDAY Qty: 0 levothyroxine 137 mcg tablet 137 mcg PO DAILY Qty: 90 3RF duloxetine 30 mg capsule,delayed release(DR/EC) See Rx Instructions .ROUTE .COMPLEX Qty: 90 3RF Dose Instruction: TAKE ONE CAPSULE BY MOUTH ONCE DAILY Rx Instructions: TAKE ONE CAPSULE BY MOUTH ONCE DAILY acetaminophen-codeine 300-30 mg tablet 2 tab PO QDAYP PRN (Reason: pain) Qty: 60 5RF multivitamin Tablet 1 tab PO DAILY ketoconazole 2 % cream topical DAILY ketoconazole 2 % shampoo 1 applic topical 2XW furosemide 20 mg tablet 10 mg PO DAILY magnesium 600 mg PO DAILY cyanocobalamin (vitamin B-12) 1,000 mcg capsule 1,000 mcg PO DAILY Rybelsus 14 mg tablet 14 mg PO DAILY Qty: 90 1RF potassium chloride 10 mEq tablet extended release 10 meq PO BID metoprolol tartrate 50 mg tablet 50 mg PO .COMPLEX Rx Instructions: 100 mg in am and 75 mg in pm; Biofreeze (menthol) 4 % gel 1 applic TOP DAILY PRN (Reason: right knee and leg pain) Eliquis 5 mg tablet 5 mg PO BID rosuvastatin 10 mg tablet 10 mg PO DAILY Referrals: Mehul Pérez MD [Primary Care Provider] - Stand Alone Forms: Patient Portal/API ED Sign-out <Martínez West MD - Last Filed: 10/20/23 08:28> Cosign ED Attending Cosignature Attestation: I was immediately available in the department for consultation. ?This documentation has been reviewed and I agree with assessment and plan. Supervised by Martínez West MD
[2023-10-15 15:53] VITALS: BP 125/78; PULSE 76; RESP 16; O2SAT 96
== END 2023-10-15 15:53 | disposition home or self-care (01) ==
PROVIDERS: Emergency Provider Physician Assistant; Family Provider Internal Medicine; PCP Internal Medicine
DX: S81.802A Unspecified open wound, left lower leg, initial encounter (principal)
CPT/HCPCS: 93971; 99283

== ENCOUNTER → 2023-10-16 10:02 | Outpatient (CLI) | payer MEDICARE, SELFPAY ==
[2023-10-16 11:36] LABS: Hematocrit 39.9 % (36-46); Hemoglobin 13.1 g/dL (12.0-16.0); Mean Corpuscular HGB Conc 32.9 % (30-36); Mean Corpuscular Hemoglobin 32.3 PG (26-34); Mean Corpuscular Volume 98.2 fL (80-100); Platelet Count 226 X10^3/uL (150-400); Red Blood Cell Count 4.06 X10^6/uL (4.0-5.2); Red Cell Distribution Width 14.3 % (11.6-14.8); White Blood Cell Count 7.4 X10^3/uL (4.5-11.0)
[2023-10-16 11:46] LABS: Hemoglobin A1C% w Est Avg Glu 6.1 % (4.0-6.0)
[2023-10-16 11:57] LABS: Alanine Aminotransferase 37 IU/L (<35); Albumin Globulin Ratio 1.4 (1.0-2.8); Alkaline Phosphatase 118 U/L (38-126); Aspartate Aminotransferase 37 IU/L (14-36); BUN Creatinine Ratio 23.3 (6-22); Bilirubin Total 1.2 mg/dL (0.2-1.3); Blood Urea Nitrogen 14 mg/dL (7-17); Calcium 8.9 mg/dL (8.4-10.2); Carbon Dioxide 27 mmol/L (22-32); Chloride 102 mmol/L (98-107); Cholesterol 107 mg/dL (140-199); Estimated Glomerular Filt Rate > 60 mL/min (>60); Globulin 2.8 g/dL (1.7-4.1); Glucose 109 mg/dL (80-110); HDL Cholesterol 55 mg/dL (40-60); HEMOLYSIS < 15 (0-50); LDL Cholesterol Calculated 38 mg/dL (<100); Magnesium 1.8 mg/dL (1.6-2.3); Potassium 4.1 mmol/L (3.4-5.1); Sodium 136 mmol/L (137-145); Total Protein 6.8 g/dL (6.3-8.2); Triglycerides 72 mg/dL (35-150)
[2023-10-16 12:28] LABS: TSH w/ Reflex to FT4 1.74 uIU/mL (0.47-4.68)
== END ==
PROVIDERS: Family Provider Internal Medicine; PCP Internal Medicine; Referring Provider Specialist; Visit Provider Internal Medicine
DX: E78.2 Mixed hyperlipidemia (principal); R73.01 Impaired fasting glucose; E03.9 Hypothyroidism, unspecified; I48.20 Chronic atrial fibrillation, unspecified; Z79.01 Long term (current) use of anticoagulants
CPT/HCPCS: 36415; 80053; 80061; 83036; 83735; 84443; 85027

== ENCOUNTER → 2023-10-29 09:23 | Outpatient (CLI) | payer MEDICARE, SELFPAY | PROVIDERS: Family Provider Internal Medicine; PCP Internal Medicine; Referring Provider Internal Medicine; Visit Provider Surgery | DX: S81.802A Unspecified open wound, left lower leg, initial encounter (principal); L98.8 Other specified disorders of the skin and subcutaneous tissue; I87.2 Venous insufficiency (chronic) (peripheral); I73.9 Peripheral vascular disease, unspecified; R60.0 Localized edema; L53.9 Erythematous condition, unspecified; Z79.01 Long term (current) use of anticoagulants; I10 Essential (primary) hypertension; I48.91 Unspecified atrial fibrillation | CPT/HCPCS: 11042; 99213 ==

== ENCOUNTER → 2023-10-31 15:20 | Outpatient (CLI) | payer MEDICARE, SELFPAY | PROVIDERS: Family Provider Internal Medicine; PCP Internal Medicine; Referring Provider Internal Medicine; Visit Provider Surgery | DX: R60.0 Localized edema (principal) | CPT/HCPCS: 29581 ==

== ENCOUNTER → 2023-11-05 13:20 | Outpatient (CLI) | payer MEDICARE, SELFPAY | LOC: WC 13:20 | PROVIDERS: Family Provider Internal Medicine; PCP Internal Medicine; Referring Provider Internal Medicine; Visit Provider Surgery | DX: S80.12XA Contusion of left lower leg, initial encounter (principal); L98.8 Other specified disorders of the skin and subcutaneous tissue; R60.0 Localized edema; I87.2 Venous insufficiency (chronic) (peripheral); I73.9 Peripheral vascular disease, unspecified; I10 Essential (primary) hypertension; I48.91 Unspecified atrial fibrillation; E66.9 Obesity, unspecified; Z68.41 Body mass index [BMI] 40.0-44.9, adult; Z79.01 Long term (current) use of anticoagulants | CPT/HCPCS: 11042; 97605 ==

== ENCOUNTER → 2023-11-08 10:14 | Outpatient (CLI) | payer MEDICARE, SELFPAY | LOC: WC 10:15 | PROVIDERS: Family Provider Internal Medicine; PCP Internal Medicine; Referring Provider Internal Medicine; Visit Provider Physician Assistant | DX: S81.802A Unspecified open wound, left lower leg, initial encounter (principal); L53.9 Erythematous condition, unspecified; R60.0 Localized edema | CPT/HCPCS: 29581; 97605 ==

== ENCOUNTER → 2023-11-12 11:44 | Outpatient (CLI) | payer MEDICARE, SELFPAY | LOC: WC 11:44 | PROVIDERS: Family Provider Internal Medicine; PCP Internal Medicine; Referring Provider Internal Medicine; Visit Provider Surgery | DX: S81.802A Unspecified open wound, left lower leg, initial encounter (principal); I87.2 Venous insufficiency (chronic) (peripheral); R60.0 Localized edema; L53.9 Erythematous condition, unspecified; I10 Essential (primary) hypertension; I48.91 Unspecified atrial fibrillation; Z79.01 Long term (current) use of anticoagulants | CPT/HCPCS: 11042; 97605 ==

== ENCOUNTER → 2023-11-15 | Outpatient (CLI) | payer MEDICARE, SELFPAY | LOC: WC 12:49 | PROVIDERS: Family Provider Internal Medicine; PCP Internal Medicine; Referring Provider Internal Medicine; Visit Provider Physician Assistant | DX: S81.802A Unspecified open wound, left lower leg, initial encounter (principal); L53.9 Erythematous condition, unspecified; R60.0 Localized edema | CPT/HCPCS: 29581; 97605 ==

== ENCOUNTER → 2023-11-19 09:47 | Outpatient (CLI) | payer MEDICARE, SELFPAY | LOC: WC 09:48 | PROVIDERS: Family Provider Internal Medicine; PCP Internal Medicine; Referring Provider Internal Medicine; Visit Provider Surgery | DX: S81.802A Unspecified open wound, left lower leg, initial encounter (principal); I87.2 Venous insufficiency (chronic) (peripheral); R60.0 Localized edema; I73.9 Peripheral vascular disease, unspecified; Z79.01 Long term (current) use of anticoagulants; I10 Essential (primary) hypertension; I48.91 Unspecified atrial fibrillation | CPT/HCPCS: 11042; 97605 ==

== ENCOUNTER → 2023-11-22 10:40 | Outpatient (CLI) | payer MEDICARE, SELFPAY | PROVIDERS: Family Provider Internal Medicine; PCP Internal Medicine; Referring Provider Internal Medicine; Visit Provider Physician Assistant | DX: S81.802A Unspecified open wound, left lower leg, initial encounter (principal); R60.0 Localized edema | CPT/HCPCS: 29581 ==

== ENCOUNTER → 2023-11-26 09:54 | Outpatient (CLI) | payer MEDICARE, SELFPAY | PROVIDERS: Family Provider Internal Medicine; PCP Internal Medicine; Referring Provider Internal Medicine; Visit Provider Physician Assistant | DX: S81.802A Unspecified open wound, left lower leg, initial encounter (principal); R60.0 Localized edema; I87.2 Venous insufficiency (chronic) (peripheral); I73.9 Peripheral vascular disease, unspecified; I10 Essential (primary) hypertension; I48.91 Unspecified atrial fibrillation | CPT/HCPCS: 11042; 99213 ==

== ENCOUNTER → 2023-12-02 09:55 | Outpatient (CLI) | payer MEDICARE, SELFPAY | PROVIDERS: Family Provider Internal Medicine; PCP Internal Medicine; Referring Provider Internal Medicine; Visit Provider Surgery | DX: S81.802A Unspecified open wound, left lower leg, initial encounter (principal); I87.2 Venous insufficiency (chronic) (peripheral); R60.0 Localized edema; I73.9 Peripheral vascular disease, unspecified; I10 Essential (primary) hypertension; I48.91 Unspecified atrial fibrillation; Z79.01 Long term (current) use of anticoagulants | CPT/HCPCS: 11042 ==

== ENCOUNTER → 2023-12-09 10:41 | Outpatient (CLI) | payer MEDICARE, SELFPAY | PROVIDERS: Family Provider Internal Medicine; PCP Internal Medicine; Referring Provider Internal Medicine; Visit Provider Surgery | DX: S81.802A Unspecified open wound, left lower leg, initial encounter (principal); R60.0 Localized edema; I87.2 Venous insufficiency (chronic) (peripheral); I73.9 Peripheral vascular disease, unspecified; I10 Essential (primary) hypertension; Z79.01 Long term (current) use of anticoagulants | CPT/HCPCS: 29581; 99213 ==

== ENCOUNTER → 2023-12-16 15:34 | Outpatient (CLI) | payer MEDICARE, SELFPAY | LOC: WC 15:35 | PROVIDERS: Family Provider Internal Medicine; PCP Internal Medicine; Referring Provider Internal Medicine; Visit Provider Surgery | DX: S81.802D Unspecified open wound, left lower leg, subsequent encounter (principal); I87.2 Venous insufficiency (chronic) (peripheral); R60.0 Localized edema; Z79.01 Long term (current) use of anticoagulants | CPT/HCPCS: 99212; 99213 ==

== ENCOUNTER → 2024-04-08 08:05 | Outpatient (CLI) | payer MEDICARE, SELFPAY ==
[2024-04-08 09:56] LABS: Alanine Aminotransferase 19 IU/L (<35); Albumin 3.8 g/dL (3.5-5.0); Albumin Globulin Ratio 1.4 (1.0-2.8); Alkaline Phosphatase 120 U/L (38-126); Aspartate Aminotransferase 26 IU/L (14-36); BUN Creatinine Ratio 26.5 (6-22); Bilirubin Total 0.8 mg/dL (0.2-1.3); Blood Urea Nitrogen 18 mg/dL (7-17); Calcium 9.3 mg/dL (8.4-10.2); Carbon Dioxide 27 mmol/L (22-32); Chloride 100 mmol/L (98-107); Estimated Glomerular Filt Rate > 60 mL/min (>60); Globulin 2.8 g/dL (1.7-4.1); Glucose 105 mg/dL (80-110); HEMOLYSIS < 15 (0-50); Potassium 4.7 mmol/L (3.4-5.1); Sodium 133 mmol/L (137-145); Total Protein 6.6 g/dL (6.3-8.2)
[2024-04-08 09:57] LABS: Hemoglobin A1C% w Est Avg Glu 5.4 % (4.0-6.0)
== END ==
PROVIDERS: Family Provider Internal Medicine; PCP Internal Medicine; Referring Provider Specialist; Visit Provider Specialist
DX: R73.01 Impaired fasting glucose (principal); E78.2 Mixed hyperlipidemia; E03.9 Hypothyroidism, unspecified
CPT/HCPCS: 36415; 80053; 83036

== ENCOUNTER → 2024-04-15 08:17 | Outpatient (CLI) | payer MEDICARE, SELFPAY ==
[2024-04-15 09:15] LABS: Magnesium 1.7 mg/dL (1.6-2.3)
== END ==
PROVIDERS: Family Provider Internal Medicine; PCP Internal Medicine; Referring Provider Specialist; Visit Provider Specialist
DX: I11.0 Hypertensive heart disease with heart failure (principal); E78.2 Mixed hyperlipidemia; I48.20 Chronic atrial fibrillation, unspecified
CPT/HCPCS: 36415; 80061; 83704; 83735

== ENCOUNTER → 2024-05-01 10:37 | Outpatient (CLI) | payer MEDICARE, SELFPAY ==
[2024-05-01 11:59] LABS: Creatinine Urine Random 40.91 mg/dL
[2024-05-01 12:08] LABS: Microalbumin Urine Random < 0.6 mg/dL (0-1.6)
== END ==
PROVIDERS: Family Provider Internal Medicine; PCP Internal Medicine; Referring Provider Internal Medicine; Visit Provider Internal Medicine
DX: R73.01 Impaired fasting glucose (principal); E78.5 Hyperlipidemia, unspecified; I11.0 Hypertensive heart disease with heart failure; I50.31 Acute diastolic (congestive) heart failure; E03.9 Hypothyroidism, unspecified; I48.20 Chronic atrial fibrillation, unspecified; D68.59 Other primary thrombophilia
CPT/HCPCS: 82043; 82570

== ENCOUNTER → 2024-08-10 12:35 | Outpatient (CLI) | payer MEDICARE, SELFPAY ==
[2024-08-10 13:38] LABS: Hematocrit 42.5 % (36-46); Hemoglobin 14.2 g/dL (12.0-16.0); Mean Corpuscular HGB Conc 33.3 % (30-36); Mean Corpuscular Hemoglobin 32.7 PG (26-34); Mean Corpuscular Volume 97.9 fL (80-100); Platelet Count 241 X10^3/uL (150-400); Red Blood Cell Count 4.34 X10^6/uL (4.0-5.2); Red Cell Distribution Width 13.9 % (11.6-14.8); White Blood Cell Count 6.9 X10^3/uL (4.5-11.0)
[2024-08-10 13:58] LABS: Alanine Aminotransferase 21 IU/L (<35); Albumin 4.3 g/dL (3.5-5.0); Albumin Globulin Ratio 1.4 (1.0-2.8); Alkaline Phosphatase 98 U/L (38-126); Aspartate Aminotransferase 29 IU/L (14-36); BUN Creatinine Ratio 23.5 (6-22); Bilirubin Total 0.9 mg/dL (0.2-1.3); Blood Urea Nitrogen 16 mg/dL (7-17); Calcium 9.3 mg/dL (8.4-10.2); Carbon Dioxide 24 mmol/L (22-32); Chloride 103 mmol/L (98-107); Cholesterol 125 mg/dL (140-199); Estimated Glomerular Filt Rate > 60 mL/min (>60); Globulin 3.1 g/dL (1.7-4.1); Glucose 102 mg/dL (80-110); HDL Cholesterol 56 mg/dL (40-60); HEMOLYSIS < 15 (0-50); LDL Cholesterol Calculated 56 mg/dL (<100); Potassium 4.2 mmol/L (3.4-5.1); Sodium 134 mmol/L (137-145); Total Protein 7.4 g/dL (6.3-8.2); Triglycerides 65 mg/dL (35-150)
[2024-08-10 14:05] LABS: Hemoglobin A1C% w Est Avg Glu 5.3 % (4.0-6.0)
[2024-08-10 14:30] LABS: TSH w/ Reflex to FT4 0.59 uIU/mL (0.47-4.68)
== END ==
PROVIDERS: Family Provider Internal Medicine; PCP Internal Medicine; Referring Provider Internal Medicine; Visit Provider Internal Medicine
DX: E03.9 Hypothyroidism, unspecified (principal); R73.01 Impaired fasting glucose; I50.32 Chronic diastolic (congestive) heart failure
CPT/HCPCS: 80053; 80061; 83036; 84443; 85027

== ENCOUNTER → 2024-09-07 14:18 | Outpatient (CLI) | payer MEDICARE, SELFPAY ==
--- NOTE | 2024-09-07 14:44 | EKG_ITS ---
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
[2024-09-07 15:31] LABS: Hematocrit 43.3 % (36-46); Hemoglobin 14.6 g/dL (12.0-16.0); Mean Corpuscular HGB Conc 33.8 % (30-36); Mean Corpuscular Hemoglobin 33.1 PG (26-34); Mean Corpuscular Volume 97.8 fL (80-100); Platelet Count 262 X10^3/uL (150-400); Red Blood Cell Count 4.43 X10^6/uL (4.0-5.2); Red Cell Distribution Width 14.4 % (11.6-14.8)
[2024-09-07 15:44] LABS: Hemoglobin A1C% w Est Avg Glu 5.2 % (4.0-6.0)
[2024-09-07 15:57] LABS: Alanine Aminotransferase 30 IU/L (<35); Albumin 4.1 g/dL (3.5-5.0); Albumin Globulin Ratio 1.5 (1.0-2.8); Alkaline Phosphatase 84 U/L (38-126); Aspartate Aminotransferase 31 IU/L (14-36); BUN Creatinine Ratio 32.1 (6-22); Bilirubin Total 0.8 mg/dL (0.2-1.3); Blood Urea Nitrogen 25 mg/dL (7-17); Calcium 9.7 mg/dL (8.4-10.2); Carbon Dioxide 31 mmol/L (22-32); Chloride 100 mmol/L (98-107); Estimated Glomerular Filt Rate > 60 mL/min (>60); Globulin 2.7 g/dL (1.7-4.1); Glucose 96 mg/dL (80-110); HEMOLYSIS < 15 (0-50); Potassium 4.8 mmol/L (3.4-5.1); Sodium 138 mmol/L (137-145); Total Protein 6.8 g/dL (6.3-8.2); Uric Acid 5.6 mg/dL (2.5-6.2)
[2024-09-07 16:50] LABS: Appearance Urine UA CLEAR; Bilirubin Urine UA NEGATIVE (NEGATIVE); Color Urine UA YELLOW; Glucose Urine UA NEGATIVE (Negative); Ketones Urine UA 1+ (NEGATIVE); Leukocyte Esterase Urine UA 1+ (NEGATIVE); Nitrite Urine UA NEGATIVE (Negative); Occult Blood Urine UA NEGATIVE (Negative); Protein Urine UA NEGATIVE (Negative); Specific Gravity Urine UA 1.015 (1.000-1.035); Urobilinogen Urine UA 0.2 E.U./dL (0.2)
[2024-09-07 17:04] LABS: Bacteria Urine Few (2-10); Culture Indicated Urine Specimen Cultured; RBC Urine 0-1/HPF (0-5/HPF); Squamous Epithelial Cell Urine 1-5 /HPF (0-5/HPF); Urine Volume 10mL (spun); WBC Urine 1-5/HPF (0-5/HPF)
== END ==
PROVIDERS: Family Provider Internal Medicine; PCP Internal Medicine; Referring Provider Internal Medicine; Visit Provider Internal Medicine
DX: Z01.818 Encounter for other preprocedural examination (principal); R73.01 Impaired fasting glucose; I48.20 Chronic atrial fibrillation, unspecified
CPT/HCPCS: 36415; 80053; 81001; 83036; 84550; 85027; 87086; 93005

== ENCOUNTER → 2024-10-06 16:43 | Outpatient (CLI) | payer MEDICARE, SELFPAY ==
[2024-10-06 17:19] LABS: Appearance Urine UA CLEAR; Bilirubin Urine UA NEGATIVE (NEGATIVE); Color Urine UA YELLOW; Glucose Urine UA NEGATIVE (Negative); Ketones Urine UA NEGATIVE (NEGATIVE); Leukocyte Esterase Urine UA 1+ (NEGATIVE); Nitrite Urine UA NEGATIVE (Negative); Occult Blood Urine UA NEGATIVE (Negative); Protein Urine UA NEGATIVE (Negative); Urobilinogen Urine UA 0.2 E.U./dL (0.2)
[2024-10-06 17:25] LABS: Bacteria Urine Few (2-10); Culture Indicated Urine Specimen Cultured; RBC Urine None Seen (0-5/HPF); Squamous Epithelial Cell Urine 5-10 /HPF (0-5/HPF); Urine Volume 10mL (spun); WBC Urine 5-10/HPF (0-5/HPF)
== END ==
PROVIDERS: Family Provider Internal Medicine; PCP Internal Medicine; Referring Provider Internal Medicine; Visit Provider Internal Medicine
DX: R35.0 Frequency of micturition (principal); R82.90 Unspecified abnormal findings in urine
CPT/HCPCS: 81001; 87086

== ENCOUNTER → 2024-12-11 11:39 | Outpatient (CLI) | payer MEDICARE, SELFPAY ==
[2024-12-11 12:25] LABS: Add Manual Diff / Slide Review NO; Basophils Absolute Auto 100 /uL (0-100); Basophils Percent Auto 1.6 % (0-2); Eosinophils Absolute Auto 100 /uL (0-450); Eosinophils Percent Auto 1.9 % (2-4); Hematocrit 39.2 % (36-46); Hemoglobin 12.9 g/dL (12.0-16.0); Lymphocytes Absolute Auto 1100 /uL (1100-4500); Lymphocytes Percent Auto 16.2 % (25-40); Mean Corpuscular HGB Conc 32.9 % (30-36); Mean Corpuscular Hemoglobin 32.5 PG (26-34); Mean Corpuscular Volume 98.5 fL (80-100); Monocytes Absolute Auto 700 /uL (0-900); Monocytes Percent Auto 9.3 % (3-14); Neutrophils Absolute Auto 5000 /uL (1500-7000); Platelet Count 266 X10^3/uL (150-400); Red Blood Cell Count 3.98 X10^6/uL (4.0-5.2); Red Cell Distribution Width 15.2 % (11.6-14.8); White Blood Cell Count 7.1 X10^3/uL (4.5-11.0)
[2024-12-11 13:05] LABS: Alanine Aminotransferase 16 IU/L (<35); Albumin 3.9 g/dL (3.5-5.0); Albumin Globulin Ratio 1.6 (1.0-2.8); Alkaline Phosphatase 107 U/L (38-126); Aspartate Aminotransferase 23 IU/L (14-36); BUN Creatinine Ratio 29.4 (6-22); Bilirubin Total 0.8 mg/dL (0.2-1.3); Blood Urea Nitrogen 20 mg/dL (7-17); Calcium 9.2 mg/dL (8.4-10.2); Carbon Dioxide 27 mmol/L (22-32); Chloride 103 mmol/L (98-107); Estimated Glomerular Filt Rate > 60 mL/min (>60); Globulin 2.5 g/dL (1.7-4.1); Glucose 104 mg/dL (70-99); HEMOLYSIS < 15 (0-50); Magnesium 1.7 mg/dL (1.6-2.3); Potassium 4.4 mmol/L (3.4-5.1); Sodium 138 mmol/L (137-145); Total Protein 6.4 g/dL (6.3-8.2)
== END ==
PROVIDERS: Family Provider Internal Medicine; PCP Internal Medicine; Referring Provider Specialist; Visit Provider Specialist
DX: I48.20 Chronic atrial fibrillation, unspecified (principal); Z79.01 Long term (current) use of anticoagulants
CPT/HCPCS: 36415; 80053; 83735; 85025